=== PATIENT | female | born 1935 | race Two or more races ===

== ENCOUNTER 2018-04-18 12:05 | Inpatient (IN) | payer MEDICARE, MEDICAID ==
[2018-04-18 12:51] LABS: BASOPHILS # (AUTO) 0.1 10^3/uL (0.0-0.1); BASOPHILS % (AUTO) 1.2 %; EOSINOPHILS # (AUTO) 0.2 10^3/uL (0.0-0.7); EOSINOPHILS % (AUTO) 3.2 %; HGB - HEMOGLOBIN 8.2 g/dL (12.0-16.0); LYMPHOCYTES # (AUTO) 0.9 10^3/uL (1.5-3.5); LYMPHOCYTES % (AUTO) 16.1 %; MEAN CORPUSCULAR HGB CONC 32.1 g/dL (32.0-36.0); MEAN CORPUSCULAR VOLUME 81.2 fL (81.0-99.0); MEAN PLATELET VOLUME 9.9 fL (7.9-10.8); MONOCYTES # (AUTO) 0.5 10^3/uL (0.0-1.0); MONOCYTES % (AUTO) 8.5 %; NEUTROPHILS # (AUTO) 4.1 10^3/uL (1.5-6.6); PLT - PLATELET COUNT 76 10^3/uL (130-450); RED BLOOD COUNT 3.14 10^6/uL (4.20-5.40); RED CELL DISTRIBUTION WIDTH 17.9 % (12.0-15.0); WHITE BLOOD COUNT 5.8 x10^3/uL (4.8-10.8)
[2018-04-18 13:02] LABS: ALBUMIN 2.9 g/dL (3.2-5.5); ALBUMIN/GLOBULIN RATIO 0.7 (1.0-2.2); CALCIUM 8.7 mg/dL (8.5-10.3); CREATININE 2.2 mg/dL (0.4-1.0)
--- NOTE | 2018-04-18 13:08 | ED Physician Documentation ---
PD HPI ABD PAIN - Stated complaint Stated Complaint: ABD PX/WEAKNESS - Chief complaint Chief Complaint: Cardiac - History obtained from History obtained from: Patient, Family, Other (using [employer] touring production manager) - History of Present Illness Timing - onset: Other (For the last 3 weeks this 83-year-old woman with history of diabetes and chronic renal insufficiency has had shortness of breath associated with abdominal swelling and upper abdominal pain. She also has dark and tarry stools with some bright red blood per rectum from hemorrhoids. Otherwise her bowel movements have been normal and she has no trouble urinating. She does have pedal edema which is new. Her endocrinology physician trialed a diuretic without relief.) Review of Systems Ten Systems: 10 systems reviewed and negative Constitutional: denies: Fever, Chills Respiratory: reports: Dyspnea. denies: Cough GI: reports: Abdominal Pain, Abdominal Swelling. denies: Nausea, Vomiting, Constipation, Diarrhea PD PAST MEDICAL HISTORY - Past Medical History Past Medical History: No Cardiovascular: Hypertension Respiratory: None Neuro: None Endocrine/Autoimmune: Type 2 diabetes GI: None [employer]: None : None HEENT: None Psych: None Musculoskeletal: None Derm: None - Past Surgical History Past Surgical History: Yes General: Cholecystectomy /[employer]: section HEENT: Cataracts - Allergies Allergies/Adverse Reactions: Allergies Allergy/AdvReac Type Severity Reaction Status Date / Time Penicillins Allergy Unknown Verified 04/18/18 12:23 - Social History Does the pt smoke?: No Smoking Status: Never smoker Does the pt drink ETOH?: No Does the pt have substance abuse?: No - Family History Family history: reports: Non contributory - Immunizations Immunizations are current?: No - POLST Patient has POLST: No PD ED PE NORMAL - Vitals Vital signs reviewed: Yes - General General: Alert and oriented X 3, No acute distress, Other (She is pale and appears anasarca. I am unable to assess JVD due to size of her neck.) - HEENT HEENT: PERRL - Neck Neck: Supple, no meningeal sign, No bony TTP - Cardiac Cardiac: RRR, No murmur - Respiratory Respiratory: No respiratory distress, Clear bilaterally - Abdomen Abdomen: Other (She has a tight distended abdomen with mild upper abdominal tenderness and a positive fluid wave) - Rectal Rectal: Other (She has a small rectal prolapse, there is scant dark stool in the vault that is very guaiac positive) - Back Back: No CVA TTP, No spinal TTP - Derm Derm: Normal color, Warm and dry - Extremities Extremities: Other (Significant bilateral pitting pedal edema with some weeping) - Neuro Neuro: Alert and oriented X 3, Normal speech Results - Vitals Vitals: Vital Signs - 24 hr 04/18/18 04/18/18 04/18/18 12:14 13:21 13:23 Temperature 37.3 C Heart Rate 87 88 Respiratory 28 H 25 H Rate Blood Pressure 131/78 H 149/64 H Blood Pressure 149/64 H [Left] O2 Saturation 100 99 04/18/18 04/18/18 04/18/18 13:34 14:04 14:34 Temperature Heart Rate 87 83 86 Respiratory 26 H 24 24 Rate Blood Pressure 149/59 H 142/68 H 134/49 H Blood Pressure [Left] O2 Saturation 98 100 100 04/18/18 04/18/18 15:00 15:30 Temperature Heart Rate 87 89 Respiratory 28 H 23 Rate Blood Pressure 139/60 H 123/70 Blood Pressure [Left] O2 Saturation 100 97 Oxygen O2 Source Room air - EKG (time done) 1310 Rate: Rate (enter#) (88) Rhythm: NSR [place]: Normal Intervals: Normal AL QRS: LVH Ischemia: Q waves (anterior). No: ST elevation c/w ischemia Compare to prior EKG: Old EKG unavailable Computer interpretation: Agree with computer - Labs Labs: Laboratory Tests 04/18/18 04/18/18 04/18/18 12:40 12:40 12:40 WBC 5.8 RBC 3.14 L Hgb 8.2 L Hct 25.4 L MCV 81.2 MCH 26.0 L MCHC 32.1 RDW 17.9 H Plt Count 76 L MPV 9.9 Neut # (Auto) 4.1 Lymph # (Auto) 0.9 L Starke # (Auto) 0.5 Eos # (Auto) 0.2 Baso # (Auto) 0.1 Absolute Nucleated RBC 0.00 Nucleated RBC % 0.0 PT INR APTT Sodium 138 Potassium 3.7 Chloride 107 Carbon Dioxide 23 Anion Gap 8.0 BUN 62 H Creatinine 2.2 H Estimated GFR (MDRD) 21 L Glucose 146 H Calcium 8.7 Total Bilirubin 1.0 AST 34 ALT 22 Alkaline Phosphatase 52 Troponin I < 0.04 Total Protein 7.0 Albumin 2.9 L Globulin 4.1 Albumin/Globulin Ratio 0.7 L Lipase 38 Blood Type Blood Type Recheck Antibody Screen Crossmatch IS Only 04/18/18 04/18/18 04/18/18 12:40 12:40 13:45 WBC RBC Hgb Hct MCV MCH MCHC RDW Plt Count MPV Neut # (Auto) Lymph # (Auto) Starke # (Auto) Eos # (Auto) Baso # (Auto) Absolute Nucleated RBC Nucleated RBC % PT 14.7 H INR 1.3 H APTT 32.4 Sodium Potassium Chloride Carbon Dioxide Anion Gap BUN Creatinine Estimated GFR (MDRD) Glucose Calcium Total Bilirubin AST ALT Alkaline Phosphatase Troponin I Total Protein Albumin Globulin Albumin/Globulin Ratio Lipase Blood Type A POSITIVE Blood Type Recheck A POSITIVE Antibody Screen NEGATIVE Crossmatch IS Only See Detail - Rads (name of study) CT KUB Radiology: EMP read contemporaneously (Cirrhotic liver and peritoneal free fluid. Renal lesion.) PD MEDICAL DECISION MAKING - ED course ED course: This is an 83-year-old woman who presents with predominant complaint of respiratory compromise which is likely due to tense ascites. Because of the ascites is unknown, but diuretics have been ineffective as prescribed by her endocrinology physician. CT is consistent with cirrhosis but she denies ever being a drinker. Given the ongoing GI bleeding she needs to stay in the hospital. Blood is ready but not transfused yet. She was given IV Protonix. Spoke with 's office who will consult if necessary for scopes and Dr. Herrera for admission at 3:43 PM. We discussed CODE STATUS using the touring production manager and she would like to be full code. Departure - Departure Disposition: [facility] DC/Xfer Clinical Impression: Ascites Qualifiers: Ascites type: other type Qualified Code(s): R18.8 - Other ascites GI bleed Qualifiers: GI bleed type/associated pathology: unspecified gastrointestinal hemorrhage type Qualified Code(s): K92.2 - Gastrointestinal hemorrhage, unspecified Condition: Serious
[2018-04-18] MEDS ORDERED: PANTOPRAZOLE 40 MG VIAL IVP STA (13:32)
--- NOTE | 2018-04-18 13:56 | XRAY Report ---
Reason: SOA, confusion Procedure Date: 04/18/2018 Accession Number: [id number] / [id number] Procedure: XR - Chest 1 View X-Ray CPT Code: 80037 FULL RESULT: EXAM: CHEST RADIOGRAPHY EXAM DATE: 04/18/2018 01:11 PM. CLINICAL HISTORY: SOA, confusion. COMPARISON: None. TECHNIQUE: 1 view. FINDINGS: Lungs/Pleura: Low lung volumes. No focal consolidation. Possible mild pulmonary vascular congestion. No pneumothorax or large pleural effusion. Mediastinum: Mild to moderate enlargement of the cardiac silhouette. Other: None. IMPRESSION: Possible mild pulmonary vascular congestion. Otherwise no evidence of acute abnormality. RADIA
[2018-04-18 15:16] LABS: INR 1.3 (0.8-1.2); PT - PROTHROMBIN TIME 14.7 secs (9.9-12.6)
--- NOTE | 2018-04-18 15:21 | CT Report ---
Reason: abd swelling, concern for ca, renal failure Procedure Date: 04/18/2018 Accession Number: [id number] / [id number] Procedure: CT - Abdomen/Pelvis W/O CPT Code: FULL RESULT: EXAM: CT ABDOMEN AND PELVIS (CT KUB) EXAM DATE: 04/18/2018 02:25 PM. CLINICAL HISTORY: Abdominal swelling, concern for cancer. Renal failure. COMPARISONS: None. TECHNIQUE: Routine axial helical CT imaging was performed through the abdomen and pelvis without IV contrast. Reconstructions: Coronal and sagittal. In accordance with CT protocol optimization, one or more of the following dose reduction techniques were utilized for this exam: automated exposure control, adjustment of mA and/or KV based on patient size, or use of iterative reconstructive technique. FINDINGS: Lung Bases: Respiratory motion limits evaluation of the parenchyma. There are linear opacities in the lung bases, suggestive of atelectasis. Heart is moderately enlarged. A small hiatal hernia is present. Liver: Nodular contour, suggestive of cirrhosis. Gallbladder/bile ducts: Gallbladder is not visualized and may be surgically absent. Common bile duct measures approximately 9 mm (series 5, image 34). This is within normal limits for the patient's age. Spleen: Mildly enlarged, measuring 14 cm in craniocaudal dimension (series 5, image 48). Pancreas: Atrophic. No ductal dilation. Adrenal glands: No nodules. Kidneys: A 1.9 cm lesion in the lower pole of the right kidney (series 3, image 56) has intermediate attenuation. This is indeterminate. Bilateral upper pole renal cyst present. No hydronephrosis. Peritoneal Cavity: There is a moderate-large volume of peritoneal free fluid. Areas of irregular stranding are demonstrated in the anterior abdomen (series 3, images 64 and 66). There are areas of stranding in the anterior abdomen (series 3, images 64 and 66), which are favored to represent areas of fluid; however, carcinomatosis could have similar appearance. No evidence of bowel obstruction. Evaluation for focal bowel inflammation is difficult in the setting of peritoneal fluid. There are scattered colonic diverticulosis without evidence of diverticulitis. Pelvic Organs: Urinary bladder is unremarkable. The uterus and adnexal structures are unremarkable. No pelvic adenopathy. Vasculature: Atherosclerotic calcification demonstrated in the abdominal aorta. No abdominal aortic aneurysm. Other: There is stranding diffusely in the subcutaneous tissues. No retroperitoneal adenopathy. IMPRESSION: 1. Cirrhosis configuration of the liver with splenomegaly, suggestive of portal hypertension. 2. Moderate-large volume peroneal free fluid is favored to represent ascites from portal hypertension. Areas of mild stranding in the anterior abdomen are felt to represent wispy areas of fluid. However, carcinomatosis is not entirely excluded. Diagnostic/therapeutic paracentesis could be considered for further evaluation. 3. Indeterminate lesion in the lower pole of the right kidney. Recommend renal ultrasound for further evaluation. 4. Small hiatal hernia. RADIA
[2018-04-18] MEDS ORDERED: ONDANSETRON ODT 4 MG TABLET TL PRN (15:42)
[2018-04-18] MEDS ORDERED: ACETAMINOPHEN 325 MG TABLET PO PRN (15:42)
[2018-04-18] MEDS ORDERED: SODIUM CHLORIDE FLUSH 0.9% 10 ML SYRINGE IVP PRN (15:42)
[2018-04-18] MEDS ORDERED: ONDANSETRON 4 MG/2 ML VIAL IVP PRN (15:42)
--- NOTE | 2018-04-18 16:28 | HISTORY & PHYSICAL EXAMINATION ---
Chief Complaint - Chief Complaint Chief Complaint: abd distension, pain, christianson History of Present Illness - Admitted From Admitted From:: Home/ER - History Obtained From Records Reviewed: Segundo/LANCE-NS History obtained from: Patient and daughter and Dr. Diggs Exam Limitations: None - History of Present Illness HPI Comment/Other: 83-year-old Polish female who has a past medical history significant for type 2 diabetes mellitus, hypertension, osteoarthritis, and morbid obesity. She moved to [facility] approximately in February. In [place] she was seen by her faculty dean approximately January. She was told that she has kidney disease and protein in the urine. Started on an ARB. Since moving here she establish herself at [facility]. [facility] stopped the ARB drug that her faculty dean prescribed. Amlodipine was started. Ever since she started the amlodipine she has had lower extremity edema. When she saw her faculty dean April 06, she was already having pedal edema and shortness of breath with exertion. She was denying chest pain or pressure. She was losing her balance and falling 4-5 times a week. Her falls are gotten so bad that she had bilateral black eyes. She had an echocardiogram performed this last year while living in [place] and she had normal cardiac function according to the patient. When she saw her faculty dean he diagnosed her as chronic kidney disease stage III with a BUN of 19 and a creatinine of 1.34. He wanted her to be on a low-salt diet, avoid nonsteroidals and proton pump inhibitors. He resumed her irbasartan and added chlorthalidone 25 mg a day. He wanted her to get physical therapy, encouraged her to have a target goal of A1c of <7% for her diabetes, a target goal blood pressure less than 130/80, and he ordered a large panel of labs as well as abdominal ultrasound. An abdominal ultrasound done April 06 showed increased hepatic echogenicity and scalloping of the hepatic capsule suggesting cirrhosis. Moderate ascites. Bilateral renal cysts. She does not know any of her ultrasound or lab results yet. She was supposed to see him May 11. But she has subsequent visits with Dr. Antonio Birmingham MD (Oncology) on 04/21/18 and BARRON Pino (GI) on 04/30/18, and a repeat Nephrology visit 05/11/[address] Tapia. The oncology visit is because she has a submandibular lymphadenopathy that is worrying her daughter. So her PCP sent her to the oncologist. And she was to see the drawing press operator because of A bleeding hemorrhoid. She was having painless bright red blood per rectum. From her lab visits on April 06, her PTH was 44 and normal. Random urine had 254 mg/dL of protein. Hemoglobin was 8.1. Hematocrit 27.5. MCV 87. Platelets 128. BUN was 63 and creatinine was 1.73. Liver enzymes were normal. What is pending is a vitamin D, serum protein electrophoresis, urine electrophoresis, hepatitis B surface antigen, FABRICIO with reflex, RPR, hepatitis C virus antibody, HIV. When she saw the faculty dean, she did have the dyspnea on exertion, and pedal edema. What she did not have was the fluid in her abdomen. Between then and now her belly has gotten more and more distended. More painful. She cannot breathe because of the pressure pushing up underneath her diaphragm. She denies weight loss. Appetite has gone down because she feels like she cannot eat. There is not enough room in her belly to do so. She denies night sweats. Her stool has turned black. She was started on a iron tablet. Pretty much the next day her stool turned black. With the abdominal distention got so uncomfortable that it made her baseline shortness of breath worse, she decided to come to the emergency room. In the emergency room she looks completely measurable. She is normotensive afebrile and a little bit tachypneic. O2 sats are normal on room air. But her belly distention is quite uncomfortable. Diffusely distended. BUN is stable at 62 but creatinine is higher at 2.2. Her GFR has dropped down to 21. Troponins are negative. DAVID globin is stable at 8.2. But platelets are dropping to 76. INR is 1.3. She is now admitted to make sure she is not having a GI bleed, to do a diagnostic and therapeutic paracentesis, and to overall provide symptom management. She is very anxious to make sure she leaves here by April 20. The oncology visit on April 21 was very hard to come by and she and her daughter are anxious at this that she keep it. 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 She had severe Alzheimer's at her . Dad in his mid 80s of "old age". She is 1 of 8 siblings. 4 siblings are . They are of complications of diabetes, dialysis, bone cancer. 3 children. 2 sons and a daughter. Morbid obesity, diabetes but otherwise healthy Living arrangement: At home Living Situation: With family Social History Notes: She is from [place]. Moved to [facility] in February 2018. She moved here because she could not live alone by herself anymore in [place]. She been falling too much. Memory loss was getting severe. Daughter was getting more a more alarmed. She did spend some time with her son in [place] but it did not work out and she was moved to [place] after that. She has been 2 times. Currently from her second . 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 She did that for about 10 or 15 years. She does not think that she was exposed to any risky chemicals. But the family is not sure. She stopped work with the of her first child. That was about 42 years ago. Never had a history of alcohol abuse.She never smoked. She never did recreational substance. - Substance History Use: Uses substance without health or social issues: NONE Abuse: Recurrent use of substance despite neg consequences: NONE Dependence: Experiences withdrawal or developed tolerances: NONE - POLST Patient has POLST: No POLST Status: Full Code Meds/Allgy - Home Medications Home Medications: Ambulatory Orders Medication Instructions Recorded Confirmed Amlodipine Besylate 5 mg PO DAILY 04/18/18 04/18/18 Atorvastatin Calcium 20 mg PO QPM 04/18/18 04/18/18 Bumetanide 1 mg PO BID 04/18/18 04/18/18 Cholecalciferol (Vitamin D3) 400 unit PO DAILY 04/18/18 04/18/18 [Vitamin D3] Ferrous Sulfate 325 mg PO BID 04/18/18 04/18/18 Insulin Glargine [Lantus Solostar] 50 unit SQ DAILY 04/18/18 04/18/18 Insulin Lispro [Humalog] 25 unit SQ TIDWM 04/18/18 04/18/18 Sertraline [Zoloft] 25 mg PO DAILY 04/18/18 04/18/18 raNITIdine [Zantac] 150 mg PO DAILY 04/18/18 04/18/18 - Allergies Allergies/Adverse Reactions: Allergies Allergy/AdvReac Type Severity Reaction Status Date / Time Penicillins Allergy Unknown Verified 04/18/18 12:23 Review of Systems - Constitutional Constitutional: reports: Fatigue, Malaise, Weakness (In her legs. They just give out on her.), Poor appetite (In the last few weeks because her belly is so distended she feels like she does not have room to eat food to put in there), Weight gain. denies: Fever, Chills, Diaphoresis, Night sweats, Weight loss - Eyes Eyes: denies: Pain, Irritation, Amaurosis, Blurred vision, Vision loss - Ears, Nose & Throat Ears, Nose & Throat: reports: Hearing loss, Vertigo (Causing falls.). denies: Ear pain, Hearing aids, Tinnitus, Nasal pain, Nasal congestion, Postnasal drainage, Dentures, Sore throat - Cardiovascular Cariovascular: reports: Edema (All the way from feet up her legs and into her buttocks and her lower back), Lightheadedness, Exertional dyspnea, Decr. exercise tolerance. denies: Irregular heart rate, Palpitations, Chest pain - Respiratory Respiratory: reports: Orthopnea, SOB at rest (From her abdominal distention pressing upwards so she can sleep comfortably or talk very much), SOB with exertion (Getting worse and worse over the last month). denies: Cough, Sputum production, Wheezing, Snoring, Hemoptysis, Apnea, Stridor, Pleuritic pain - Gastrointestinal Gastrointestinal: reports: Abdominal pain (Diffuse from the distention of the fluid in her belly. Present only the last 2 weeks), Abdominal distention, Rectal bleeding (From a ball of hemorrhoid that is not painful), Black stools (When she started the iron tablets), Bloating, Poor appetite. denies: Change in bowel habits, Bile emesis, [place] blood emesis, Coffee grounds emesis, Reflux/heartburn - Musculoskeletal Musculoskeletal: reports: Back pain, Muscle aches, Stiffness, Gout, Joint pain. denies: Muscle pain - Integumentary Integumentary: reports: Lumps (Left submandibular area). denies: Rash, Pruritis, Lesions, Dryness - Neurological Neurological: reports: General weakness, Dizziness, Memory problems (Starting about a year ago. For instance she will take her insulin, and 10 minutes later forgets she took it, and asked her daughter if she should take it again), Incoor dination (Gets waves of dizziness, then her legs go out from underneath her, and she falls a lot. This is been ongoing for 3 years.She denies syncope. She denies seizure disorder.). denies: Focal weakness, Headache - Psychiatric Psychiatric: reports: Depression, Anxiety. denies: Suicidal, Delusions, Hallucinations - Endocrine Endocrine: denies: Polyuria, Polydypsia, Polyphagia - Hematologic/Lymphatic Hematologic/Lymphatic: reports: Bruising, Petechiae, Blood clots (DVT in the past). denies: Anemia Prior Level of Functionality: She was living alone in [place] in her own home. But for the last 3 years she has been falling too much, needing more more help with regards to walkers and finances and medication. Memory loss was really starting to affect her ability keep things straight. Daughter finally got alarmed enough that she brought her to the [facility] in the summer 2018. Since then she has noticed that her mom is very forgetful, does not remember what she is done in the last 10 minutes, needs to be prompted to eat. Still is very impulsive, gets up suddenly and then will fall because of dizziness. Sometimes she uses a walker sometimes she does not. She does not drive. She is currently not taking care of any of her finances. Exam - Vital Signs Reviewed Vital Signs: Yes Vital Signs: Vital Signs x48h Temp Pulse Resp BP BP Pulse Ox 04/18/18 15:30 89 23 123/70 97 04/18/18 15:00 87 28 H 139/60 H 100 04/18/18 14:34 86 24 134/49 H 100 04/18/18 14:04 83 24 142/68 H 100 04/18/18 13:34 87 26 H 149/59 H 98 04/18/18 13:23 149/64 H 04/18/18 13:21 88 25 H 149/64 H 99 04/18/18 12:14 37.3 C 87 28 H 131/78 H 100 - Physical Exam General Appearance: positive: No acute distress, Alert, Other (Short morbidly obese female who is very uncomfortable laying almost flat on her back, with a huge amount of the belly above her, restricting her ability to at least release her diaphragm to breathe. Very uncomfortable from the distention.) Eyes Bilateral: positive: PERRL, EOMI, Other ([place] sclera) ENT: positive: Other (A lot of teeth gone, thick gingival hyperplasia, very dry tongue, pale tongue and oral mucosa) Neck: positive: Other (JVD is present). negative: Stiff neck, Carotid bruit Respiratory: positive: Chest non-tender, Rales, Other (Painting almost tachypneic respiration that she tries to catch her breath). negative: Wheezes, Rhonchi Cardiovascular: positive: Regular rate & rhythm, JVD present, Systolic murmur. negative: Gallop/S4, Friction rub Peripheral Pulses: positive: 1+ Abdomen: positive: Other (Diffusely tender obese pannus, tympanitic and its pressure. Hypoactive bowel sounds. Generalized tenderness without rebound or guarding. Liver edge is palpable. Spleen is not palpable. There is no spider angioma on her abdominal wall) Skin: positive: Warm, Dry, Pallor Extremities: positive: Full ROM, Pedal edema (And anasarca. She has 2-3+ edema from the feet all the way up. She has 2+ edema at the thighs and 1+ edema in the sacrum and buttock). negative: Joint swelling, Isabella's sign/cords Neurologic/Psychiatric: positive: CN's nml (2-12), Motor nml, Disoriented to time (She relies on her daughter to provide the history and give her a backup. For instance she cannot remember when her mother . She cannot remember when her dad . She is a hard time remembering how many siblings she had.), Weakness Conclusion/Plan - Problem List (1) Cirrhosis of liver with ascites Conclusion/Plan: She denies alcohol abuse. she has no history of drug abuse. 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 Differential diagnosis in this woman would include hepatitis, ovarian cancer, colon cancer, etc. There is no definitive liver lesion seen on CT. We are focusing on the hematochezia but she is more concerned about the fact she cannot breathe from her abdominal distention. Plan: Call [facility] to get those results Check alpha-fetoprotein Probable outpatient EGD to check for esophageal varices but we will get Gen Surg consult Radiology will be contacted to schedule a paracentesis tomorrow morning. Fluid will be sent for cell count, Gram stain, culture and sensitivity, LDH, glucose, protein. I will also have fluid spun down for cytology and analysis. Hepatitis B and C serology is pending from April 06 at [facility]. I do not want to repeat the studies. Qualifiers: Hepatic cirrhosis type: unspecified hepatic cirrhosis Qualified Code(s): K74.60 - Unspecified cirrhosis of liver; R18.8 - Other ascites (2) Hematochezia Conclusion/Plan: This is a lady who has bright red blood per rectum from a presumed hemorrhoid. Hematochezia started after she was started on iron tablets. Hemoglobin from April 06 and today is stable. The patient's black stools may be strictly from iron tablets. As for the small "little ball" that she feels in her rectum, she may be feeling her rectal prolapse. It is painless. And Dr. Cook does not feel hemorrhoids. Or see hemorrhoids. Stool is FOB (+) Plan: Check every 6 hours hemograms. She may be a candidate for an EGD and colonoscopy. However, if she has esophageal varices, general surgery is not gone want to scope her here. If she is hemodynamically stable and not having evidence of a GI bleed, she may need to do this in the outpatient setting when she sees the physician retail sales assistant April 30. (3) Acute renal failure superimposed on stage 3 chronic kidney disease Conclusion/Plan: She may have prerenal azotemia from the lack of p.o. intake. But she already has chronic kidney disease and liver failure. Monitor for hepatorenal failure. Plan: Check daily CBC. Make sure she does not get hypotensive She will need diuresis. However, I plan on doing a paracentesis tomorrow and she may get up to 6 L taken out. We will make sure she gets albumin after the procedure. I will not give her Lasix on top of that until she is redistributed some of her body fluids. I also warned her that sometimes she gets severe leg cramps and body cramps as the fluid comes out of your soft tissues. We will make sure she gets magnesium oxide. Qualifiers: Acute renal failure type: unspecified Qualified Code(s): N17.9 - Acute kidney failure, unspecified; N18.3 - Chronic kidney disease, stage 3 (moderate) (4) Controlled type 2 diabetes mellitus, with long-term current use of insulin Conclusion/Plan: Lantus is 50 units at night. She also takes 25 units of lispro 25 subcu 3 times daily. She will be allowed dinner. But then she will be n.p.o. after midnight. Her random glucose is 146. We will try not to make her hypoglycemic. Qualifiers: Diabetes mellitus complication status: with kidney complications Diabetes mellitus complication detail: with chronic kidney disease Chronic kidney disease stage: stage 3 (moderate) Qualified Code(s): E11.22 - Type 2 diabetes mellitus with diabetic chronic kidney disease; N18.3 - Chronic kidney disease, stage 3 (moderate); Z79.4 - half-way (current) use of insulin (5) HTN (hypertension) Conclusion/Plan: In for systolic of less than 130 and a diastolic of less than 70. We will also monitor carefully because she is going to get a paracentesis and will be int ravascularly depleted and possibly drop her blood pressure. Again, we will avoid diuretics for now. She will get albumin after the procedure. Qualifiers: Hypertension type: essential hypertension Qualified Code(s): I10 - Essential (primary) hypertension (6) Renal mass, right Conclusion/Plan: renal US. (7) CHRISTIANSON (dyspnea on exertion) Conclusion/Plan: This woman describes classic presentation of someone who may have congestive heart failure. But she is adamant that an echocardiogram done in [place] the month before she left [place] was completely normal. I do not know if I want to trust that history or do a repeat our own echo here? She does not have COPD or asthma as was listed in her medical record and [facility]. She is adamant that she was a non-smoker, never had problems with asthma or coughing or wheezing. Her dyspnea on exertion may be strictly from this gradually increasing ascites. After her paracentesis, will reevaluate her mobility and endurance. If it is still limited, will check echo then. - Lab Results Fish Bones: 04/18/18 17:05 04/18/18 12:40 - Diagnostic Imaging Results Diagnostic Imaging Results: positive: Final report reviewed Diagnostic Imaging Results Comments: CT OF ABDOMEN EXAM DATE: 04/18/2018 02:25 PM. CLINICAL HISTORY: Abdominal swelling, concern for cancer. Renal failure. COMPARISONS: None. TECHNIQUE: Routine axial helical CT imaging was performed through the abdomen and pelvis without IV contrast. Reconstructions: Coronal and sagittal. In accordance with CT protocol optimization, one or more of the following dose reduction techniques were utilized for this exam: automated exposure control, adjustment of mA and/or KV based on patient size, or use of iterative reconstructive technique. FINDINGS: Lung Bases: Respiratory motion limits evaluation of the parenchyma. There are linear opacities in the lung bases, suggestive of atelectasis. Heart is moderately enlarged. A small hiatal hernia is present. Liver: Nodular contour, suggestive of cirrhosis. Gallbladder/bile ducts: Gallbladder is not visualized and may be surgically absent. Common bile duct measures approximately 9 mm (series 5, image 34). This is within normal limits for the patient's age. Spleen: Mildly enlarged, measuring 14 cm in craniocaudal dimension (series 5, image 48). Pancreas: Atrophic. No ductal dilation. Adrenal glands: No nodules. Kidneys: A 1.9 cm lesion in the lower pole of the right kidney (series 3, image 56) has intermediate attenuation. This is indeterminate. Bilateral upper pole renal cyst present. No hydronephrosis. Peritoneal Cavity: There is a moderate-large volume of peritoneal free fluid. Areas of irregular stranding are demonstrated in the anterior abdomen (series 3, images 64 and 66). There are areas of stranding in the anterior abdomen (series 3, images 64 and 66), which are favored to represent areas of fluid; however, carcinomatosis could have similar appearance. No evidence of bowel obstruction. Evaluation for focal bowel inflammation is difficult in the setting of peritoneal fluid. There are scattered colonic diverticulosis without evidence of diverticulitis. Pelvic Organs: Urinary bladder is unremarkable. The uterus and adnexal structures are unremarkable. No pelvic adenopathy. Vasculature: Atherosclerotic calcification demonstrated in the abdominal aorta. No abdominal aortic aneurysm. Other: There is stranding diffusely in the subcutaneous tissues. No retroperitoneal adenopathy. IMPRESSION: 1. Cirrhosis configuration of the liver with splenomegaly, suggestive of portal hypertension. 2. Moderate-large volume peroneal free fluid is favored to represent ascites from portal hypertension. Areas of mild stranding in the anterior abdomen are felt to represent wispy areas of fluid. However, carcinomatosis is not entirely excluded. Diagnostic/therapeutic paracentesis could be considered for further evaluation. 3. Indeterminate lesion in the lower pole of the right kidney. Recommend renal ultrasound for further evaluation. 4. Small hiatal hernia. CHEST RADIOGRAPHY EXAM DATE: 04/18/2018 01:11 PM. CLINICAL HISTORY: SOA, confusion. COMPARISON: None. TECHNIQUE: 1 view. FINDINGS: Lungs/Pleura: Low lung volumes. No focal consolidation. Possible mild pulmonary vascular congestion. No pneumothorax or large pleural effusion. Mediastinum: Mild to moderate enlargement of the cardiac silhouette. Other: None. IMPRESSION: Possible mild pulmonary vascular congestion. Otherwise no evidence of acute abnormality. Core Measures - Anticipated LOS I expect patient to be DC'd or transferred within 96 hours.: Yes - DVT/VTE - Prophylaxis VTE/DVT Device ordered at admit?: Yes
[2018-04-18 17:18] LABS: HGB - HEMOGLOBIN 8.1 g/dL (12.0-16.0); MEAN CORPUSCULAR HEMOGLOBIN 25.9 pg (27.0-31.0); MEAN CORPUSCULAR HGB CONC 29.2 g/dL (32.0-36.0); MEAN CORPUSCULAR VOLUME 88.8 fL (81.0-99.0); MEAN PLATELET VOLUME 10.5 fL (7.9-10.8); RED BLOOD COUNT 3.11 10^6/uL (4.20-5.40); RED CELL DISTRIBUTION WIDTH 18.6 % (12.0-15.0); WHITE BLOOD COUNT 6.4 x10^3/uL (4.8-10.8)
[2018-04-18] MEDS: INSULIN REGULAR HUMAN 100 UNIT/1 ML 10 ML MDV SUBQ SCH (18:54)
[2018-04-18] MEDS: oxyCODONE 5 MG TABLET PO PRN (18:56)
[2018-04-18] MEDS: SODIUM CHLORIDE FLUSH 0.9% 10 ML SYRINGE IVP SCH (18:57)
[2018-04-18] MEDS: INSULIN GLARGINE 300 UNIT/3 ML PEN SUBQ SCH (20:51)
[2018-04-18] MEDS: FERROUS SULFATE 325 MG TABLET PO SCH (20:51)
[2018-04-18] MEDS ORDERED: BACITRACIN OINT TOP PRN (21:07)
[2018-04-19] MEDS: INSULIN REGULAR HUMAN 100 UNIT/1 ML 10 ML MDV SUBQ SCH ×3 (00:01→12:47)
[2018-04-19] MEDS: SODIUM CHLORIDE FLUSH 0.9% 10 ML SYRINGE IVP SCH ×3 (00:03→16:28)
[2018-04-19 00:41] LABS: HGB - HEMOGLOBIN 7.1 g/dL (12.0-16.0); MEAN CORPUSCULAR HEMOGLOBIN 25.9 pg (27.0-31.0); MEAN CORPUSCULAR HGB CONC 31.1 g/dL (32.0-36.0); MEAN CORPUSCULAR VOLUME 83.1 fL (81.0-99.0); MEAN PLATELET VOLUME 10.8 fL (7.9-10.8); RED BLOOD COUNT 2.75 10^6/uL (4.20-5.40); RED CELL DISTRIBUTION WIDTH 17.5 % (12.0-15.0); WHITE BLOOD COUNT 4.7 x10^3/uL (4.8-10.8)
[2018-04-19 05:14] LABS: EOSINOPHILS # (AUTO) 0.2 10^3/uL (0.0-0.7); EOSINOPHILS % (AUTO) 4.2 %; HGB - HEMOGLOBIN 7.1 g/dL (12.0-16.0); LYMPHOCYTES % (AUTO) 22.7 %; MEAN CORPUSCULAR HEMOGLOBIN 25.9 pg (27.0-31.0); MEAN CORPUSCULAR HGB CONC 31.1 g/dL (32.0-36.0); MEAN CORPUSCULAR VOLUME 83.2 fL (81.0-99.0); MEAN PLATELET VOLUME 9.9 fL (7.9-10.8); MONOCYTES # (AUTO) 0.5 10^3/uL (0.0-1.0); MONOCYTES % (AUTO) 10.4 %; NEUTROPHILS # (AUTO) 2.7 10^3/uL (1.5-6.6); NEUTROPHILS % (AUTO) 61.7 %; PLT - PLATELET COUNT 70 10^3/uL (130-450); RED BLOOD COUNT 2.75 10^6/uL (4.20-5.40); RED CELL DISTRIBUTION WIDTH 17.7 % (12.0-15.0); WHITE BLOOD COUNT 4.5 x10^3/uL (4.8-10.8)
[2018-04-19 05:20] LABS: CALCIUM 8.3 mg/dL (8.5-10.3); CREATININE 2.1 mg/dL (0.4-1.0)
[2018-04-19 05:25] LABS: HEMOGLOBIN A1C 0.25 g/dL; HEMOGLOBIN A1C % 5.4 % (4.6-6.2)
--- NOTE | 2018-04-19 07:59 | PROVIDER PROGRESS NOTE ---
Subjective - Prog Note Date Prog Note Date: 04/19/18 Prog Note Time: 08:30 - Subjective Pt reports feeling: No change Subjective: She is asleep but awakens easily. She says she was able to get some rest last night. But she still very tired. The abdominal pressure does not hurt as much but it still there. She did not get any diuresis last night is I am hoping to avoid worsening her kidneys in the face of her about to get a paracentesis today that will be large volume. There is no new chest pain, palpitations. Current Medications - Current Medications Current Medications: Active Medications Acetaminophen (Tylenol) 650 mg PO Q4HR PRN PRN Reason: Pain 1 to 4 Amlodipine Besylate (Norvasc) 5 mg PO DAILY [facility] Bacitracin (Bacitracin) 1 packet TOP PRN PRN PRN Reason: Skin Care Ferrous Sulfate (Feosol) 325 mg PO BID [facility] Last Admin: 04/18/18 20:51 Dose: 325 mg Albumin Human (Albuminar-25) 12.5 gm in 50 mls @ 50 mls/hr IV ONCE [facility] Stop: 04/22/18 09:59 Dextrose/Sodium Chloride (D5ns) 1,000 mls @ 83.333 mls/hr IV .Q12H [facility] Insulin Glargine (Lantus Solostar) 40 unit SUBQ QPM [facility] Last Admin: 04/18/18 20:51 Dose: 20 unit Insulin Human Regular (Novolin R) 3 - 11 unit SUBQ Q6HR [facility]; Protocol Last Admin: 04/19/18 05:52 Dose: Not Given Ondansetron HCl (Zofran Inj) 4 mg IVP Q6HR PRN PRN Reason: Nausea / Vomiting Ondansetron HCl (Zofran Odt) 4 mg TL Q6HR PRN PRN Reason: Nausea / Vomiting Oxycodone HCl (Roxicodone) 5 mg PO Q4HR PRN PRN Reason: Pain 5 to 7 Last Admin: 04/18/18 18:56 Dose: 5 mg Polyethylene Glycol (Miralax) 17 gm PO DAILY [facility] Sertraline HCl (Zoloft) 25 mg PO DAILY [facility] Sodium Chloride (Normal Saline Flush 0.9%) 10 ml IVP PRN PRN PRN Reason: NEEDED PER PROVIDER ORDERS Sodium Chloride (Normal Saline Flush 0.9%) 10 ml IVP 0100,0900,1700 [facility] Last Admin: 04/19/18 00:03 Dose: 10 ml Amlodipine Besylate 5 mg PO DAILY 04/18/18 Atorvastatin Calcium 20 mg PO QPM 04/18/18 Bumetanide 1 mg PO BID 04/18/18 Cholecalciferol (Vitamin D3) [Vitamin D3] 400 unit PO DAILY 04/18/18 Ferrous Sulfate 325 mg PO BID 04/18/18 Insulin Glargine [Lantus Solostar] 50 unit SQ DAILY 04/18/18 Insulin Lispro [Humalog] 25 unit SQ TIDWM 04/18/18 Sertraline [Zoloft] 25 mg PO DAILY 04/18/18 raNITIdine [Zantac] 150 mg PO DAILY 04/18/18 Objective - Vital Signs/Intake & Output Reviewed Vital Signs: Yes Vital Signs: Vital Signs x48h Temp Pulse Pulse Resp BP Pulse Ox 04/19/18 03:38 37.1 C 98 20 100 04/19/18 00:00 36.7 C 87 20 133/51 H 92 Intake & Output: Intake & Output 04/16/18 04/17/18 04/18/18 04/19/18 23:59 23:59 23:59 23:59 Intake Total 250 Output Total 200 Balance 250 -200 - Objective General Appearance: positive: No acute distress, Alert, Other (Short statured moderately overweight female. Her large distended abdomen may be deceiving in that it gives her a larger body habitus than she may have.) Eyes Bilateral: positive: PERRL ENT: positive: Other (Gingival hyperplasia, some of her teeth are gone, pale dry tongue) Neck: negative: Stiff neck, Carotid bruit Respiratory: positive: Chest non-tender, No respiratory distress, Rales. negative: Wheezes, Rhonchi Cardiovascular: positive: Regular rate & rhythm, Systolic murmur. negative: Gallop/S4, Friction rub Abdomen: positive: Other (Diffusely distended, tympanitic, diffusely tender. Hypoactive bowel sounds. Liver edge palpable in the right upper quadrant. No splenomegaly. No capus medusa.) Skin: positive: Warm, Dry, Other (she does have the overall duarte of a hemochromatosis patient) Extremities: positive: Full ROM, Pedal edema (and anasarca to buttocks) Neurologic/Psychiatric: positive: CN's nml (2-12), Motor nml, Disoriented to time, Weakness, Other (very forgetful) - Lab Results Fish Bones: 04/19/18 04:50 04/19/18 04:50 Other Labs: Lab Results x24hrs 04/19/18 04/19/18 04/19/18 Range/Units 05:51 04:50 04:50 WBC (4.8-10.8) x10^3/uL RBC (4.20-5.40) 10^6/uL Hgb (12.0-16.0) g/dL Hct (37.0-47.0) % MCV (81.0-99.0) fL MCH (27.0-31.0) pg MCHC (32.0-36.0) g/dL RDW (12.0-15.0) % Plt Count (130-450) 10^3/uL MPV (7.9-10.8) fL Neut # (Auto) (1.5-6.6) 10^3/uL Lymph # (Auto) (1.5-3.5) 10^3/uL Bond # (Auto) (0.0-1.0) 10^3/uL Eos # (Auto) (0.0-0.7) 10^3/uL Baso # (Auto) (0.0-0.1) 10^3/uL Absolute Nucleated RBC x10^3/uL Nucleated RBC % /100WBC PT (9.9-12.6) secs INR (0.8-1.2) APTT (24.9-33.3) secs Sodium (135-145) mmol/L Potassium (3.5-5.0) mmol/L Chloride (101-111) mmol/L Carbon Dioxide (21-32) mmol/L Anion Gap (6-13) BUN (6-20) mg/dL Creatinine (0.4-1.0) mg/dL Estimated GFR (MDRD) (>89) Glucose (70-100) mg/dL POC Whole Bld Glucose 103 H (70 - 100) mg/dL Glycated Hemoglobin 5.4 (4.6-6.2) % Estim Average Glucose 108 H (70-100) Calcium (8.5-10.3) mg/dL Total Bilirubin (0.2-1.0) mg/dL AST (10-42) IU/L ALT (10-60) IU/L Alkaline Phosphatase (42-121) IU/L Troponin I (<0.49) ng/mL Total Protein (6.7-8.2) g/dL Albumin (3.2-5.5) g/dL Globulin (2.1-4.2) g/dL Albumin/Globulin Ratio (1.0-2.2) Lipase (22-51) U/L Carcinoembryonic Ag 3.3 ng/mL Blood Type Blood Type Recheck Antibody Screen Crossmatch IS Only 04/19/18 04/19/18 04/19/18 Range/Units 04:50 04:50 00:30 WBC 4.5 L 4.7 L (4.8-10.8) x10^3/uL RBC 2.75 L 2.75 L (4.20-5.40) 10^6/uL Hgb 7.1 L 7.1 L (12.0-16.0) g/dL Hct 22.9 L 22.9 L (37.0-47.0) % MCV 83.2 83.1 (81.0-99.0) fL MCH 25.9 L 25.9 L (27.0-31.0) pg MCHC 31.1 L 31.1 L (32.0-36.0) g/dL RDW 17.7 H 17.5 H (12.0-15.0) % Plt Count 70 L 74 L (130-450) 10^3/uL MPV 9.9 10.8 (7.9-10.8) fL Neut # (Auto) 2.7 (1.5-6.6) 10^3/uL Lymph # (Auto) 1.0 L (1.5-3.5) 10^3/uL Bond # (Auto) 0.5 (0.0-1.0) 10^3/uL Eos # (Auto) 0.2 (0.0-0.7) 10^3/uL Baso # (Auto) 0.0 (0.0-0.1) 10^3/uL Absolute Nucleated RBC 0.00 x10^3/uL Nucleated RBC % 0.1 /100WBC PT (9.9-12.6) secs INR (0.8-1.2) APTT (24.9-33.3) secs Sodium 140 (135-145) mmol/L Potassium 3.5 (3.5-5.0) mmol/L Chloride 109 (101-111) mmol/L Carbon Dioxide 22 (21-32) mmol/L Anion Gap 9.0 (6-13) BUN 63 H (6-20) mg/dL Creatinine 2.1 H (0.4-1.0) mg/dL Estimated GFR (MDRD) 23 L (>89) Glucose 117 H (70-100) mg/dL POC Whole Bld Glucose (70 - 100) mg/dL Glycated Hemoglobin (4.6-6.2) % Estim Average Glucose (70-100) Calcium 8.3 L (8.5-10.3) mg/dL Total Bilirubin (0.2-1.0) mg/dL AST (10-42) IU/L ALT (10-60) IU/L Alkaline Phosphatase (42-121) IU/L Troponin I (<0.49) ng/mL Total Protein (6.7-8.2) g/dL Albumin (3.2-5.5) g/dL Globulin (2.1-4.2) g/dL Albumin/Globulin Ratio (1.0-2.2) Lipase (22-51) U/L Carcinoembryonic Ag ng/mL Blood Type Blood Type Recheck Antibody Screen Crossmatch IS Only 04/18/18 04/18/18 04/18/18 Range/Units 23:53 20:18 17:56 WBC (4.8-10.8) x10^3/uL RBC (4.20-5.40) 10^6/uL Hgb (12.0-16.0) g/dL Hct (37.0-47.0) % MCV (81.0-99.0) fL MCH (27.0-31.0) pg MCHC (32.0-36.0) g/dL RDW (12.0-15.0) % Plt Count (130-450) 10^3/uL MPV (7.9-10.8) fL Neut # (Auto) (1.5-6.6) 10^3/uL Lymph # (Auto) (1.5-3.5) 10^3/uL Bond # (Auto) (0.0-1.0) 10^3/uL Eos # (Auto) (0.0-0.7) 10^3/uL Baso # (Auto) (0.0-0.1) 10^3/uL Absolute Nucleated RBC x10^3/uL Nucleated RBC % /100WBC PT (9.9-12.6) secs INR (0.8-1.2) APTT (24.9-33.3) secs Sodium (135-145) mmol/L Potassium (3.5-5.0) mmol/L Chloride (101-111) mmol/L Carbon Dioxide (21-32) mmol/L Anion Gap (6-13) BUN (6-20) mg/dL Creatinine (0.4-1.0) mg/dL Estimated GFR (MDRD) (>89) Glucose (70-100) mg/dL POC Whole Bld Glucose 123 H 149 H 150 H (70 - 100) mg/dL Glycated Hemoglobin (4.6-6.2) % Estim Average Glucose (70-100) Calcium (8.5-10.3) mg/dL Total Bilirubin (0.2-1.0) mg/dL AST (10-42) IU/L ALT (10-60) IU/L Alkaline Phosphatase (42-121) IU/L Troponin I (<0.49) ng/mL Total Protein (6.7-8.2) g/dL Albumin (3.2-5.5) g/dL Globulin (2.1-4.2) g/dL Albumin/Globulin Ratio (1.0-2.2) Lipase (22-51) U/L Carcinoembryonic Ag ng/mL Blood Type Blood Type Recheck Antibody Screen Crossmatch IS Only 04/18/18 04/18/18 04/18/18 Range/Units 17:05 13:45 12:40 WBC 6.4 (4.8-10.8) x10^3/uL RBC 3.11 L (4.20-5.40) 10^6/uL Hgb 8.1 L (12.0-16.0) g/dL Hct 27.7 L (37.0-47.0) % MCV 88.8 (81.0-99.0) fL MCH 25.9 L (27.0-31.0) pg MCHC 29.2 L (32.0-36.0) g/dL RDW 18.6 H (12.0-15.0) % Plt Count 77 L (130-450) 10^3/uL MPV 10.5 (7.9-10.8) fL Neut # (Auto) (1.5-6.6) 10^3/uL Lymph # (Auto) (1.5-3.5) 10^3/uL Bond # (Auto) (0.0-1.0) 10^3/uL Eos # (Auto) (0.0-0.7) 10^3/uL Baso # (Auto) (0.0-0.1) 10^3/uL Absolute Nucleated RBC x10^3/uL Nucleated RBC % /100WBC PT 14.7 H (9.9-12.6) secs INR 1.3 H (0.8-1.2) APTT 32.4 (24.9-33.3) secs Sodium (135-145) mmol/L Potassium (3.5-5.0) mmol/L Chloride (101-111) mmol/L Carbon Dioxide (21-32) mmol/L Anion Gap (6-13) BUN (6-20) mg/dL Creatinine (0.4-1.0) mg/dL Estimated GFR (MDRD) (>89) Glucose (70-100) mg/dL POC Whole Bld Glucose (70 - 100) mg/dL Glycated Hemoglobin (4.6-6.2) % Estim Average Glucose (70-100) Calcium (8.5-10.3) mg/dL Total Bilirubin (0.2-1.0) mg/dL AST (10-42) IU/L ALT (10-60) IU/L Alkaline Phosphatase (42-121) IU/L Troponin I (<0.49) ng/mL Total Protein (6.7-8.2) g/dL Albumin (3.2-5.5) g/dL Globulin (2.1-4.2) g/dL Albumin/Globulin Ratio (1.0-2.2) Lipase (22-51) U/L Carcinoembryonic Ag ng/mL Blood Type A POSITIVE Blood Type Recheck Antibody Screen NEGATIVE Crossmatch IS Only See Detail 04/18/18 04/18/18 04/18/18 Range/Units 12:40 12:40 12:40 WBC (4.8-10.8) x10^3/uL RBC (4.20-5.40) 10^6/uL Hgb (12.0-16.0) g/dL Hct (37.0-47.0) % MCV (81.0-99.0) fL MCH (27.0-31.0) pg MCHC (32.0-36.0) g/dL RDW (12.0-15.0) % Plt Count (130-450) 10^3/uL MPV (7.9-10.8) fL Neut # (Auto) (1.5-6.6) 10^3/uL Lymph # (Auto) (1.5-3.5) 10^3/uL Bond # (Auto) (0.0-1.0) 10^3/uL Eos # (Auto) (0.0-0.7) 10^3/uL Baso # (Auto) (0.0-0.1) 10^3/uL Absolute Nucleated RBC x10^3/uL Nucleated RBC % /100WBC PT (9.9-12.6) secs INR (0.8-1.2) APTT (24.9-33.3) secs Sodium 138 (135-145) mmol/L Potassium 3.7 (3.5-5.0) mmol/L Chloride 107 (101-111) mmol/L Carbon Dioxide 23 (21-32) mmol/L Anion Gap 8.0 (6-13) BUN 62 H (6-20) mg/dL Creatinine 2.2 H (0.4-1.0) mg/dL Estimated GFR (MDRD) 21 L (>89) Glucose 146 H (70-100) mg/dL POC Whole Bld Glucose (70 - 100) mg/dL Glycated Hemoglobin (4.6-6.2) % Estim Average Glucose (70-100) Calcium 8.7 (8.5-10.3) mg/dL Total Bilirubin 1.0 (0.2-1.0) mg/dL AST 34 (10-42) IU/L ALT 22 (10-60) IU/L Alkaline Phosphatase 52 (42-121) IU/L Troponin I < 0.04 (<0.49) ng/mL Total Protein 7.0 (6.7-8.2) g/dL Albumin 2.9 L (3.2-5.5) g/dL Globulin 4.1 (2.1-4.2) g/dL Albumin/Globulin Ratio 0.7 L (1.0-2.2) Lipase 38 (22-51) U/L Carcinoembryonic Ag ng/mL Blood Type Blood Type Recheck A POSITIVE Antibody Screen Crossmatch IS Only 04/18/18 Range/Units 12:40 WBC 5.8 (4.8-10.8) x10^3/uL RBC 3.14 L (4.20-5.40) 10^6/uL Hgb 8.2 L (12.0-16.0) g/dL Hct 25.4 L (37.0-47.0) % MCV 81.2 (81.0-99.0) fL MCH 26.0 L (27.0-31.0) pg MCHC 32.1 (32.0-36.0) g/dL RDW 17.9 H (12.0-15.0) % Plt Count 76 L (130-450) 10^3/uL MPV 9.9 (7.9-10.8) fL Neut # (Auto) 4.1 (1.5-6.6) 10^3/uL Lymph # (Auto) 0.9 L (1.5-3.5) 10^3/uL Bond # (Auto) 0.5 (0.0-1.0) 10^3/uL Eos # (Auto) 0.2 (0.0-0.7) 10^3/uL Baso # (Auto) 0.1 (0.0-0.1) 10^3/uL Absolute Nucleated RBC 0.00 x10^3/uL Nucleated RBC % 0.0 /100WBC PT (9.9-12.6) secs INR (0.8-1.2) APTT (24.9-33.3) secs Sodium (135-145) mmol/L Potassium (3.5-5.0) mmol/L Chloride (101-111) mmol/L Carbon Dioxide (21-32) mmol/L Anion Gap (6-13) BUN (6-20) mg/dL Creatinine (0.4-1.0) mg/dL Estimated GFR (MDRD) (>89) Glucose (70-100) mg/dL POC Whole Bld Glucose (70 - 100) mg/dL Glycated Hemoglobin (4.6-6.2) % Estim Average Glucose (70-100) Calcium (8.5-10.3) mg/dL Total Bilirubin (0.2-1.0) mg/dL AST (10-42) IU/L ALT (10-60) IU/L Alkaline Phosphatase (42-121) IU/L Troponin I (<0.49) ng/mL Total Protein (6.7-8.2) g/dL Albumin (3.2-5.5) g/dL Globulin (2.1-4.2) g/dL Albumin/Globulin Ratio (1.0-2.2) Lipase (22-51) U/L Carcinoembryonic Ag ng/mL Blood Type Blood Type Recheck Antibody Screen Crossmatch IS Only ABX Reporting Has patient been on IV antibiotics over the past 48 hours?: No Assessment/Plan - Problem List (1) Cirrhosis of liver with ascites Impression: (1) Cirrhosis of liver with ascites Conclusion/Plan: She is a CTS socre of 8 which puts her at Class B and 80% 1 year survival. She denies alcohol abuse. There is no jaundice, PT is mildly elevated, and LFT's are nml. No encephalopathy but her dementia doesn't help. she has no history of drug abuse. 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 Differential diagnosis in this woman would include hepatitis B/C, mets from ovarian/colon cancer, autoimmune hepatitis, but doubt hemochromatosis or Gian's at this point in her life. There is no definitive liver lesion seen on CT. We are focusing on the hematochezia but she is more concerned about the fact she cannot breathe from her abdominal distention. So far this morning we are awaiting the paracentesis. I have spoken to both radiologist and central supply technician supervisor. If there likely they can get her in around 10:30 in the morning. Otherwise it will be at lunchtime. All appropriate studies of already been ordered and put in [facility]. Plan: We have called [facility] to get those results and not sent yet, we will recall. Hernán the [facility] is verifying Check alpha-fetoprotein, draw is this am. Her CEA is <4. Will also get IgG, FABRICIO, anticmooth muscle Ab, anti-LKM-1, and LC1 Probable outpatient EGD to check for esophageal varices, Gen Surg Consult kateryna pastrana. I have spoken to Radiology, Dr. Bowie and US tech, paracentesis is for 10:30 or noon. Will hang albumin and IVF and have it ready to go for when she goes down to radiology Fluid will be sent for cell count, Gram stain, culture and sensitivity, LDH, glucose, protein. I will also have fluid spun down for cytology and analysis. Hepatitis B and C serology is pending from April 06 at [place]. I do not want to repeat the studies. Qualifiers: Hepatic cirrhosis type: unspecified hepatic cirrhosis Qualified Code(s): K74.60 - Unspecified cirrhosis of liver; R18.8 - Other ascites (2) Hematochezia Conclusion/Plan: This is a lady who has bright red blood per rectum from a presumed hemorrhoid. Hematochezia started after she was started on iron tablets. Hemoglobin from April 06 and today is stable. The patient's black stools may be strictly from iron tablets. As for the small "little ball" that she feels in her rectum, she may be feeling her rectal prolapse. It is painless. And Dr. Diggs does not feel hemorrhoids. Or see hemorrhoids. Stool is FOBT (+) Plan: Checking every 6 hours hemograms and her Hgb has drifted down to 7.1 on two checks. Stable. Transfuse 1 unit if < 7 especially if BP goes down w paracentesis. She may be a candidate for an EGD and colonoscopy. However, if she has esophageal varices, general surgery is not gone want to scope her here. If she is hemodynamically stable and not having evidence of a GI bleed, she may need to do this in the outpatient setting when she sees the physician retail event and sales assistant April 30. (3) Acute renal failure superimposed on stage 3 chronic kidney disease Conclusion/Plan: She may have prerenal azotemia from the lack of p.o. intake. But she already has chronic kidney disease and liver failure. Monitor for hepatorenal failure. Plan: Check daily BMP. Creat is stable. 2.2>2.1 Make sure she does not get hypotensive She will need diuresis. However, I plan on paracentesis today and she may get up to 6-7 L taken out. We will make sure she gets albumin during the procedure per Dr. Bowie's request. At 6-8 grams/L taken out, she will need minimum of 42 grams so will give 4 bottles. I did not give her Lasix on top of that yesterday until she is redistributed some of her body fluids. I also warned her that sometimes she gets severe leg cramps and body cramps as the fluid comes out of your soft tissues. We will make sure she gets magnesium oxide. Qualifiers: Acute renal failure type: unspecified Qualified Code(s): N17.9 - Acute kidney failure, unspecified; N18.3 - Chronic kidney disease, stage 3 (moderate) (4) Controlled type 2 diabetes mellitus, with long-term current use of insulin Conclusion/Plan: Lantus is 50 units at night. She also takes 25 units of lispro 25 subcu 3 times daily. She will be allowed dinner. But then she will be n.p.o. after midnight. Her random glucose was 146 on admission. She is 103-125 this am. Will hang D5. She is NPO for procedure. will feed her as soon as paracentesis done. Qualifiers: Diabetes mellitus complication status: with kidney complications Diabetes mellitus complication detail: with chronic kidney disease Chronic kidney disease stage: stage 3 (moderate) Qualified Code(s): E11.22 - Type 2 diabetes mellitus with diabetic chronic kidney disease; N18.3 - Chronic kidney disease, stage 3 (moderate); Z79.4 - FPC (current) use of insulin (5) HTN (hypertension) Conclusion/Plan: Aim for systolic of less than 130 and a diastolic of less than 70. We will also monitor carefully because she is going to get a paracentesis and will be intravascularly depleted and possibly drop her blood pressure. Again, we will avoid diuretics for now. She will get albumin after the procedure. Qualifiers: Hypertension type: essential hypertension Qualified Code(s): I10 - Essential (primary) hypertension (6) Renal mass, right Conclusion/Plan: renal US. (7) KENNY (dyspnea on exertion) Conclusion/Plan: This woman describes classic presentation of someone who may have congestive heart failure. But she is adamant that an echocardiogram done in [place] the month before she left [place] was completely normal. I do not know if I want to trust that history or do a repeat our own echo here? She does not have COPD or asthma as was listed in her medical record and [place]. She is adamant that she was a non-smoker, never had problems with asthma or coughing or wheezing. Her dyspnea on exertion may be strictly from this gradually in creasing ascites. After her paracentesis, will reevaluate her mobility and endurance. If it is still limited, will check echo then. (8) Isolated lymph node. Conclusion/Plan: She can't tolerae dye w a CT. Will do CT neck and chest once her paracentesis has been done.
[2018-04-19] MEDS ORDERED: ALBUMIN 25% 12.5 GM/50 ML VIAL IV SCH (09:00)
[2018-04-19] MEDS ORDERED: DEXTROSE 5%-0.9% NACL 1,000 ML IV SCH (09:00)
[2018-04-19] MEDS ORDERED: LIDOCAINE 1% 10 ML MDV ONE (11:17)
[2018-04-19] MEDS: ALBUMIN 25% 12.5 GM/50 ML VIAL IV SCH ×4 (12:21→12:48)
[2018-04-19 13:40] LABS: CC,BF RBC 485 /mm^3
--- NOTE | 2018-04-19 13:48 | Ultrasound Report ---
Reason: ascites, no hx of hep or alco Procedure Date: 04/19/2018 Accession Number: [id number] / [id number] Procedure: US - Abdominal Paracentesis CPT Code: FULL RESULT: EXAM: ULTRASOUND-GUIDED PARACENTESIS EXAM DATE: 04/19/2018 01:32 PM. CLINICAL HISTORY: Ascites, no history of hep or alco. COMPARISON: None. TECHNIQUE: Risks, benefits, and alternatives to the procedure were discussed with the patient. All questions answered. Written and verbal consent obtained. Patient was placed in the supine position and the skin overlying the ascites marked with sonographic guidance. The skin was sterilely prepped and draped, and 1% buffered lidocaine was used for local anesthesia. An 18-gauge J[place] catheter was advanced into the peritoneal ascites and fluid aspirated. Upon completion, the catheter was removed. FINDINGS: A total of 5400 mL of fluid was removed without immediate complication. Patient tolerated procedure well. IMPRESSION: Ultrasound-guided paracentesis without immediate complications. RADIA
[2018-04-19] MEDS: FERROUS SULFATE 325 MG TABLET PO SCH ×2 (13:59→20:22)
[2018-04-19] MEDS: amLODIPine 5 MG TABLET PO SCH (13:59)
[2018-04-19] MEDS: SERTRALINE 25 MG TABLET PO SCH (13:59)
[2018-04-19] MEDS: POLYETHYLENE GLYCOL 3350 17 GM PACKET PO SCH (14:01)
[2018-04-19 14:22] LABS: BF COLOR YELLOW; BF SOURCE PERITONEAL; LYMPHOCYTES %,BODY FLUID 56; MACROPHAGES %,BODY FLUID 31 %; MONOCYTES %,BODY FLUID 4 %
[2018-04-19] MEDS ORDERED: BUFFERED LIDOCAINE 10 ML SYRINGE IU ONE (17:07)
[2018-04-19] MEDS: INSULIN ASPART 300 UNIT/3 ML PEN SUBQ SCH ×2 (17:15→20:23)
[2018-04-19] MEDS: INSULIN GLARGINE 300 UNIT/3 ML PEN SUBQ SCH (20:23)
[2018-04-20] MEDS: SODIUM CHLORIDE FLUSH 0.9% 10 ML SYRINGE IVP SCH ×2 (01:13→08:52)
[2018-04-20] MEDS: oxyCODONE 5 MG TABLET PO PRN (04:11)
[2018-04-20 06:12] LABS: BASOPHILS % (AUTO) 0.9 %; EOSINOPHILS # (AUTO) 0.2 10^3/uL (0.0-0.7); EOSINOPHILS % (AUTO) 4.6 %; HGB - HEMOGLOBIN 7.1 g/dL (12.0-16.0); LYMPHOCYTES # (AUTO) 0.8 10^3/uL (1.5-3.5); LYMPHOCYTES % (AUTO) 18.8 %; MEAN CORPUSCULAR HEMOGLOBIN 25.6 pg (27.0-31.0); MEAN CORPUSCULAR VOLUME 82.5 fL (81.0-99.0); MEAN PLATELET VOLUME 9.7 fL (7.9-10.8); MONOCYTES # (AUTO) 0.5 10^3/uL (0.0-1.0); MONOCYTES % (AUTO) 11.3 %; NEUTROPHILS # (AUTO) 2.7 10^3/uL (1.5-6.6); NEUTROPHILS % (AUTO) 64.4 %; PLT - PLATELET COUNT 69 10^3/uL (130-450); RED BLOOD COUNT 2.77 10^6/uL (4.20-5.40); RED CELL DISTRIBUTION WIDTH 18.1 % (12.0-15.0); WHITE BLOOD COUNT 4.2 x10^3/uL (4.8-10.8)
[2018-04-20 06:23] LABS: CALCIUM 8.2 mg/dL (8.5-10.3); CREATININE 1.8 mg/dL (0.4-1.0)
[2018-04-20] MEDS: INSULIN ASPART 300 UNIT/3 ML PEN SUBQ SCH ×2 (08:28→12:45)
[2018-04-20] MEDS: SERTRALINE 25 MG TABLET PO SCH (08:50)
[2018-04-20] MEDS: amLODIPine 5 MG TABLET PO SCH (08:50)
[2018-04-20] MEDS: FERROUS SULFATE 325 MG TABLET PO SCH (08:51)
[2018-04-20] MEDS: POLYETHYLENE GLYCOL 3350 17 GM PACKET PO SCH (08:51)
--- NOTE | 2018-04-20 08:56 | CT Report ---
Reason: lymhadenopathy Procedure Date: 04/20/2018 Accession Number: [id number] / [id number] Procedure: CT - Chest W/O CPT Code: FULL RESULT: EXAM: CT CHEST EXAM DATE: 04/20/2018 07:28 AM. CLINICAL HISTORY: Lymphadenopathy. Renal insufficiency (GFR 27). COMPARISONS: Chest x-ray 04/18/2018. TECHNIQUE: Routine helical CT imaging was performed through the chest. IV contrast: None. Reconstructions: Coronal and sagittal. In accordance with CT protocol optimization, one or more of the following dose reduction techniques were utilized for this exam: automated exposure control, adjustment of mA and/or KV based on patient size, or use of iterative reconstructive technique. FINDINGS: Lungs/Pleura: Patchy irregular airspace opacities medial right lower lobe and left base. Trace left pleural effusion. Mild subpleural atelectasis or scarring left upper lobe. No central endobronchial obstructing lesion. Mild pulmonary vascular engorgement, without overt pulmonary edema. Elevated anterior right hemidiaphragm suggests diaphragmatic eventration. No pneumothorax. Mediastinum: Mild cardiomegaly without pericardial effusion. Moderate coronary calcifications. Modest calcified aortic plaques. No aneurysm. No gross mediastinal or hilar adenopathy identified. Bones: Degenerative changes of the spine and shoulders. No acute fracture or aggressive bone destructive process. Visualized Abdomen: Small cirrhotic liver. Moderate ascites and mesenteric/omental infiltration. Small hiatus hernia. Mild low density left adrenal thickening, without suspicious nodule. A 1.9 cm exophytic right upper pole renal nodule. Other: A 1.5 cm nodule in the medial and a 0.9 cm nodule in the upper left breast. Few small normal appearing bilateral axillary nodes. IMPRESSION: 1. Patchy irregular bibasilar opacities consistent with atelectasis or infiltrates. No segmental consolidation. 2. Trace left pleural effusion. 3. No obvious mediastinal or hilar adenopathy. 4. Mild cardiomegaly. Pulmonary vascular engorgement, without overt pulmonary edema. Moderate coronary calcifications. 5. Small hiatus hernia. 6. Cirrhosis. Moderate ascites and other incidental findings in the visualized upper abdomen. RADIA
[2018-04-20] MEDS ORDERED: POTASSIUM CHLORIDE 20 MEQ/15 ML UDC PO SCH (09:00)
[2018-04-20 09:04] VITALS: BP 135/46
--- NOTE | 2018-04-20 11:47 | CT Report ---
Reason: lymphadenopathy Procedure Date: 04/20/2018 Accession Number: [id number] / [id number] Procedure: CT - Neck Soft Tissue W/O CPT Code: FULL RESULT: EXAM: CT SOFT TISSUE NECK WITHOUT CONTRAST. EXAM DATE: 04/20/2018 07:28 AM. HISTORY: 83-year-old female with lymphadenopathy COMPARISONS: None. TECHNIQUE: Routine soft tissue neck CT protocol without intravenous contrast. Reconstructions: Coronal and sagittal. IV contrast: None. In accordance with CT protocol optimization, one or more of the following dose reduction techniques were utilized for this exam: automated exposure control, adjustment of mA and/or KV based on patient size, or use of iterative reconstructive technique. FINDINGS: Visualized Intracranial Contents: No acute abnormality. Cavum septum pellucidum et vergae, a benign anatomic variant. Orbits: Status post right lens replacement surgery. The visualized orbits are otherwise unremarkable. Sinuses: Visualized paranasal sinuses and mastoid air cells are clear. Oral cavity: The visualized oral cavity is unremarkable. The floor of the mouth is symmetric. Pharynx : Pharyngeal mucosa is unremarkable. The infratemporal fossa, parapharyngeal spaces, and retropharyngeal space are unremarkable. The base of the tongue is symmetric and unremarkable. The airway is patent. Larynx: Larynx and supraglottic airway are patent without mass lesion. Vocal cords are symmetric. The visualized trachea is unremarkable. Parotid and Submandibular Glands: There is a 17 x 13 mm soft tissue density lesion within the left parotid gland (series 2 image 24). The right parotid gland and the submental glands are unremarkable. Lymph Nodes: No enlarged lymph nodes are identified in the cervical, supraclavicular, and visualized superior mediastinal regions. Soft tissues: Soft tissues are unremarkable. No mass lesion. Vascular Structures: Mild atherosclerosis Thyroid Gland: Normal. Lung: The visualized lung apices are clear. Bones: No evidence of acute fracture or malalignment. There are mild degenerative changes. Other: None. IMPRESSION: 1. There is a 17 x 13 mm soft tissue density lesion within the left parotid gland (series 2 image 24). This lesion is nonspecific, may represent intraparotid lymph node versus a parotid lesion such as pleomorphic adenoma. Consider follow-up ultrasound evaluation. 2. Otherwise no CT evidence of cervical lymphadenopathy, mass, abscess, or definite mucosal abnormality. [facility]
--- NOTE | 2018-04-20 12:06 | Discharge Plan ---
Discharge Plan Disposition: Home, Self Care Condition: Fair Prescriptions: Insulin Glargine [Lantus Solostar] 20 unit SUBQ QPM #1 pen Potassium Chloride [K-Dur] 20 meq PO DAILY #30 tablet Spironolactone [Aldactone] 25 mg PO DAILY #60 tablet Diet: Low Sodium (Restrict sodium to 2 grams a day and fluid to 2 liters a day) Activity Restrictions: Activity as Tolerated Shower Restrictions: No Driving Restrictions: No Assistance Devices: Walker Weight Bearing: Full Weight Additional Instructions or Follow Up instructions: You came to our emergency department due to fatigue and increasing pressure in your abdomen. You were found to have fluid in your abdomen and in your lower extremities. After further testing it appears that you have cirrhosis of your liver causing ascites. We removed fluid from your abdomen with a paracentesis. We also gave you diuretic medication to reduce the fluid in your abdomen as wel l as in your legs. It appears that your breathing has improved although you still have difficulty taking deep breaths. We have not yet been able to detect the cause of your cirrhosis. You need further workup including an oncology follow-up as you do have a soft tissue density in your parotid gland that needs an ultrasound evaluation and may need biopsy. You also need to follow-up with gastroenterology as you have been having black stools and your hemoglobin or blood count is low. We are prescribing you a diuretic called spironolactone along with Bumex which you are already taking to help reduce the amount of fluid in your legs and your abdomen. I also advised that you decrease your salt intake to no more than 2 g a day. Along with this you should also limit your fluid intake to no more than 2 L a day. You need to follow-up closely with your primary care physician. We found while you were hospitalized that your blood glucose is running low and you will need to reduce your dose of Lantus to 20 units and NovoLog to 5 units 3 times a day with meals. I encouraged that you keep a log of your blood glucose after reduction in the dose and reported to your primary care physician. No Smoking: If you smoke, Please STOP! Call for help. Follow-up with: Rachele Carl MD [Primary Care Provider] -
--- NOTE | 2018-04-20 12:55 | CONSULTATION NOTE ---
Referring Provider Name of Referring Provider:: Dr. Herrera Consult Date: 04/19/18 Chief Complaint - Chief Complaint Chief Complaint: Hematochezia- anemia History of Present Illness - Admitted From Admitted From:: [facility] ED - History Obtained From Records Reviewed: Yes History obtained from: Primarily chart and Dr. Herrera, some patient and daughter Exam Limitations: Sami speaking - History of Present Illness HPI Comment/Other: I am asked to opine on this pleasant (Sami-speaking) 83-year-old female who was evaluated in room 2210 at [facility] MedSurg unit. I am going to summarize her presentation. She has new onset ascites along with renal failure and understandably dyspnea on exertion. This is complicated by some dementia. The reason for the consult to me is that there was some hematochezia and the patient was started on iron which then made her stools dark/black. On radiographic studies she has cirrhosis but the cause of the cirrhosis is unknown. Dr. Herrera has outlined a very detailed plan to workup either the cirrhosis and/or the renal failure and the patient is scheduled to be seen by supervisor maintenance and custodians within a week's time as well as by a sink cutter. Currently, the patient complains of some lightheadedness but can stand and use a walker to transition into a wheelchair. There is no hematemesis. Specifically there is no abdominal pain. It is unclear if there has ever been a colonoscopy or endoscopy done previously. 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 She had severe Alzheimer's at her . Dad in his mid 80s of "old age". She is 1 of 8 siblings. 4 siblings are . They are of complications of diabetes, dialysis, bone cancer. 3 children. 2 sons and a daughter. Morbid obesity, diabetes but otherwise healthy Living arrangement: At home Living Situation: With family Social History Notes: She is from [place]. Moved to [facility] in February 2018. She moved here because she could not live alone by herself anymore in [place]. She been falling too much. Memory loss was getting severe. Daughter was getting more a more alarmed. She did spend some time with her son in [place] but it did not work out and she was moved to [place] after that. She has been 2 times. Currently from her second . 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 She did that for about 10 or 15 years. She does not think that she was exposed to any risky chemicals. But the family is not sure. She stopped work with the of her first child. That was about 42 years ago. Never had a history of alcohol abuse.She never smoked. She never did recreational substance. - Substance History Use: Uses substance without health or social issues: NONE Abuse: Recurrent use of substance despite neg consequences: NONE Dependence: Experiences withdrawal or developed tolerances: NONE - POLST Patient has POLST: No POLST Status: Full Code Meds/Allgy - Home Medications Home Medications: Ambulatory Orders Medication Instructions Recorded Confirmed Amlodipine Besylate 5 mg PO DAILY 04/18/18 04/18/18 Atorvastatin Calcium 20 mg PO QPM 04/18/18 04/18/18 Bumetanide 1 mg PO BID 04/18/18 04/18/18 Cholecalciferol (Vitamin D3) 400 unit PO DAILY 04/18/18 04/18/18 [Vitamin D3] Ferrous Sulfate 325 mg PO BID 04/18/18 04/18/18 Sertraline [Zoloft] 25 mg PO DAILY 04/18/18 04/18/18 raNITIdine [Zantac] 150 mg PO DAILY 04/18/18 04/18/18 Insulin Glargine [Lantus Solostar] 20 unit SUBQ QPM #1 pen 04/20/18 Insulin Lispro [Humalog] 5 unit SQ TIDWM #1 04/20/18 04/18/18 Potassium Chloride [K-Dur] 20 meq PO DAILY #30 tablet 04/20/18 Spironolactone [Aldactone] 25 mg PO DAILY #60 tablet 04/20/18 - Allergies Allergies/Adverse Reactions: Allergies Allergy/AdvReac Type Severity Reaction Status Date / Time Penicillins Allergy Unknown Verified 04/18/18 12:23 Review of Systems - Constitutional Constitutional: reports: Fatigue - Eyes Eyes: denies: Pain - Ears, Nose & Throat Ears, Nose & Throat: denies: Ear pain - Cardiovascular Cariovascular: reports: Palpitations - Respiratory Respiratory: reports: SOB at rest, SOB with exertion. denies: Hemoptysis - Gastrointestinal Gastrointestinal: reports: Rectal bleeding, Bloody stools. denies: Abdominal pain, Black stools - Musculoskeletal Musculoskeletal: reports: Limited range of motion, Muscle weakness Exam - Vital Signs Reviewed Vital Signs: Yes Vital Signs: Vital Signs x48h Temp Pulse Resp BP Pulse Ox 04/20/18 09:02 36.8 C 75 18 135/46 H 92 - Physical Exam General Appearance: positive: No acute distress (But patient moves slow and with the aid of a walker and transition into a wheelchair. She is very pleasant.) Eyes Bilateral: positive: No lid inflammation, Conjunctivae nml, No scleral icterus ENT: positive: No signs of dehydration Neck: positive: Trachea midline Respiratory: positive: Chest non-tender, Breath sounds nml Cardiovascular: positive: Regular rate & rhythm Abdomen: positive: Non-tender, No organomegaly, Nml bowel sounds, Other (Please note that there is a significant amount of central obesity.) Skin: positive: Color nml Extremities: positive: Non-tender Neurologic/Psychiatric: positive: Disoriented to time Conclusion/Plan - Diagnosis Diagnosis: Anemia with a new diagnosis of cirrhosis and renal failure - Plan Plan: There is no emergent or urgent reason to scope this patient at this point in time. She has an appointment with a supervisor maintenance and custodians in about a week's time. She is currently stable. There is a multifactorial possibility as to the cause of her anemia including but not limited to cirrhosis with varices, malignancy, renal failure to name a few. Pathology should have been done on the tap of her ascites in the office chance that it is malignant. I have let the patient and the family know that if there is any acute problem that she certainly can be see n back in the hospital and scopes can be done but I think that deferring her upper and lower endoscopy to the supervisor maintenance and custodians who will likely be working up her liver failure as well would be the most prudent and direct course. 30 minutes of [id number] time was spent with the patient, almost all in explanation and discussion, coordination of their care and completion of the requisite paperwork Dragon disclaimer: This document was created in part using voice recognition technology. Because of the inherent limitations of the system ([employer]'s [employer] user manual states that the licensee understands that speech recognition is a statistical process and that recognition errors are inherent in the process), occasional same sounding word substitutions and grammatical errors do occur and persist despite proofreading. Please read this document for context. - Lab Results Lab results reviewed: Yes Fish Bones: 04/20/18 05:55 04/20/18 05:55 - Diagnostic Imaging Results Diagnostic Imaging Results: positive: Final report reviewed, Read independently
--- NOTE | 2018-04-20 15:37 | DISCHARGE SUMMARY ---
"Discharge Summary Admit Date: 04/18/18 Discharge Date: 04/20/18 Discharging Provider: Edu Flowers MD Primary Care Provider: Rachele Carl Code Status: Attempt Resuscitation Condition at Discharge: Fair Discharge Disposition: 01 Home, Self Care - DIAGNOSES Admission Diagnoses: 1. Cirrhosis of liver with ascites 2. Hematochezia 3. Acute renal failure superimposed on stage III chronic kidney disease 4. Controlled type 2 diabetes mellitus, with long-term current use of insulin 5. Hypertension 6. Renal mass, right 7. Dyspnea on exertion Discharge Diagnoses with Status of Each Condition: 1. Cirrhosis of liver with ascites: Stable 2. Hematochezia: Stable 3. Acute renal failure superimposed on stage III chronic kidney disease: Improved 4. Kidney lesion: Stable 5. Left parotid gland soft tissue density lesion: Stable 6. Controlled type 2 diabetes mellitus, with long-term current use of insulin: Stable 7. Hypertension: Stable 8. Dyspnea on exertion: Stable - HPI History of Present Illness: 83-year-old [place] female who has a past medical history significant for type 2 diabetes mellitus, hypertension, osteoarthritis, and morbid obesity. She moved to [facility] approximately in February. In [place] she was seen by her house player approximately January. She was told that she has kidney disease and protein in the urine. Started on an ARB. Since moving here she establish herself at [facility]. [facility] stopped the ARB drug that her house player prescribed. Amlodipine was started. Ever since she started the amlodipine she has had lower extremity edema. When she saw her house player April 06, she was already having pedal edema and shortness of breath with exertion. She was denying chest pain or pressure. She was losing her balance and falling 4-5 times a week. Her falls are gotten so bad that she had bilateral black eyes. She had an echocardiogram performed this last year while living in [place] and she had normal cardiac function according to the patient. When she saw her house player he diagnosed her as chronic kidney disease stage III with a BUN of 19 and a creatinine of 1.34. He wanted her to be on a low-salt diet, avoid nonsteroidals and proton pump inhibitors. He resumed her irbasartan and added chlorthalidone 25 mg a day. He wanted her to get physical therapy, encouraged her to have a target goal of A1c of <7% for her diabetes, a target goal blood pressure less than 130/80, and he ordered a large panel of labs as well as abdominal ultrasound. An abdominal ultrasound done April 06 showed increased hepatic echogenicity and scalloping of the hepatic capsule suggesting cirrhosis. Moderate ascites. Bilateral renal cysts. She does not know any of her ultrasound or lab results yet. She was supposed to see him May 11. But she has subsequent visits with Dr. Antonio Birmingham MD (Oncology) on 04/21/18 and BARRON Pino (GI) on 04/30/18, and a repeat Nephrology visit 05/11/[address] Tapia. The oncology visit is because she has a submandibular lymphadenopathy that is worrying her daughter. So her PCP sent her to the oncologist. And she was to see the survey chief because of A bleeding hemorrhoid. She was having painless bright red blood per rectum. From her lab visits on April 06, her PTH was 44 and normal. Random urine had 254 mg/dL of protein. Hemoglobin was 8.1. Hematocrit 27.5. MCV 87. Platelets 128. BUN was 63 and creatinine was 1.73. Liver enzymes were normal. What is pending is a vitamin D, serum protein electrophoresis, urine electrophoresis, hepatitis B surface antigen, FABRICIO with reflex, RPR, hepatitis C virus antibody, HIV. When she saw the house player, she did have the dyspnea on exertion, and pedal edema. What she did not have was the fluid in her abdomen. Between then and now her belly has gotten more and more distended. More painful. She cannot breathe because of the pressure pushing up underneath her diaphragm. She denies weight loss. Appetite has gone down because she feels like she cannot eat. There is not enough room in her belly to do so. She denies night sweats. Her stool has turned black. She was started on a iron tablet. Pretty much the next day her stool turned black. With the abdominal distention got so uncomfortable that it made her baseline shortness of breath worse, she decided to come to the emergency room. In the emergency room she looks completely measurable. She is normotensive afebrile and a little bit tachypneic. O2 sats are normal on room air. But her belly distention is quite uncomfortable. Diffusely distended. BUN is stable at 62 but creatinine is higher at 2.2. Her GFR has dropped down to 21. Troponins are negative. DAVID globin is stable at 8.2. But platelets are dropping to 76. INR is 1.3. She is now admitted to make sure she is not having a GI bleed, to do a diagnostic and therapeutic paracentesis, and to overall provide symptom management. She is very anxious to make sure she leaves here by April 20. The oncology visit on April 21 was very hard to come by and she and her daughter are anxious at this that she keep it. She does have an enlarged lymph gland just underneath her jaw in the left anterior cervical chain. It is larger than the right side. Firm. Not rubbery. No other lymphadenopathy. - CONSULTS | PROCEDURES Consultations: General surgery Procedures: There is no emergent or urgent reason to scope this patient at this point in time. She has an appointment with a survey chief in about a week's time. She is currently stable. There is a multifactorial possibility as to the cause of her anemia including but not limited to cirrhosis with varices, malignancy, renal failure to name a few. Pathology should have been done on the tap of her ascites in the office chance that it is malignant. I have let the patient and the family know that if there is any acute problem that she certainly can be seen back in the hospital and scopes can be done but I think that deferring her upper and lower endoscopy to the survey chief who will likely be working up her liver failure as well would be the most prudent and direct course. - HOSPITAL COURSE Hospital Course: The patient was hospitalized for dyspnea on exertion and increasing pulmonary edema, increasing ascites and lower extremity edema. The patient was found to have cirrhosis of her liver for unknown etiology. The patient underwent an ultrasound-guided paracentesis with removal of 5.4 L of fluid. The fluid was negative for infection and was clear appearing. It has been sent for cytology and that is pending. The patient had significant improvement in her symptoms with the paracentesis and was continued on her home dose of Bumex and spironolactone was added at discharge for continued diuresis with her ongoing liver cirrhosis. The patient is currently being worked up for possible etiology of liver cirrhosis. The patient has a pending hemochromatosis workup given her history of diabetes. The patient does have evidence of end-stage liver disease given the ascites and low platelet count. The patient's INR is also mildly elevated at 1.3. The patient's bilirubin is within normal limits. The patient is scheduled to see oncology regarding a left parotid gland soft tissue density measuring 17 x 13 mm. The patient also has history of dark stools and hemoglobin remained fairly stable during hospitalization at discharge her hemoglobin was 7.1. The patient was not transfused. She will follow-up with her primary care physician and gastroenterology in 2 weeks for further evaluation and possible endoscopy and colonoscopy. The patient does not have a history of alcohol abuse or hepatitis. Suspicion is that the patient may have nonalcoholic fatty liver disease which has progressed to cirrhosis but she will likely need biopsy to confirm this. The patient was in stable condition at the time of discharge but will need extensive follow-up with oncology and gastroenterology as well as her primary care physician. During hospitalization the patient was having episodes of hypoglycemia. The patient's hemoglobin A1c was found to be 5.4 which is quite low for someone at the age of 83. The patient's Lantus and NovoLog were adjusted prior to discharge. The patient's Lantus was decreased to 20 units and NovoLog was decreased to 5 units 3 times daily with meals. The patient was asked to keep a log of her blood glucose and take it to her primary care physician for further adjustment of her insulin. Through a continuous process coffee roaster I discussed the patient's poor prognosis going forward with both her and her daughter. They understood that given her liver cirrhosis she has a poor prognosis but at this point wanted to continue to be a full code. I did explain to them that in the future that palliative care may be an option for the patient if there is no further treatment options. The patient was discha rged home with Bumex and spironolactone as well as potassium to help control her fluid overload from ascites and liver failure as well as chronic kidney disease. On presentation the patient did have acute on chronic kidney failure which was improved at the time of discharge. - ALLERGIES Allergies/Adverse Reactions: Allergies Allergy/AdvReac Type Severity Reaction Status Date / Time Penicillins Allergy Unknown Verified 04/18/18 12:23 - MEDICATIONS Home Medications: Ambulatory Orders Medication Instructions Recorded Confirmed Amlodipine Besylate 5 mg PO DAILY 04/18/18 04/18/18 Atorvastatin Calcium 20 mg PO QPM 04/18/18 04/18/18 Bumetanide 1 mg PO BID 04/18/18 04/18/18 Cholecalciferol (Vitamin D3) 400 unit PO DAILY 04/18/18 04/18/18 [Vitamin D3] Ferrous Sulfate 325 mg PO BID 04/18/18 04/18/18 Sertraline [Zoloft] 25 mg PO DAILY 04/18/18 04/18/18 raNITIdine [Zantac] 150 mg PO DAILY 04/18/18 04/18/18 Insulin Glargine [Lantus Solostar] 20 unit SUBQ QPM #1 pen 04/20/18 Insulin Lispro [Humalog] 5 unit SQ TIDWM #1 04/20/18 04/18/18 Potassium Chloride [K-Dur] 20 meq PO DAILY #30 tablet 04/20/18 Spironolactone [Aldactone] 25 mg PO DAILY #60 tablet 04/20/18 - PHYSICAL EXAM AT DISCHARGE General Appearance: positive: No acute distress, Alert, Other (Obese) Eyes Bilateral: positive: Normal inspection, PERRL, EOMI, No lid inflammation, Conjunctivae nml, No scleral icterus ENT: positive: ENT inspection nml, Pharynx nml, No signs of dehydration. negative: Purulent nasal drainage, Pharyngeal erythema, Oral lesions Neck: positive: Nml inspection, Thyroid nml, No JVD, Trachea midline. negative: Thyromegaly, Lymphadenopathy (R), Lymphadenopathy (L), Stiff neck, Carotid bruit, Tracheal deviation Respiratory: positive: Chest non-tender, Rales (Bases) Cardiovascular: positive: Regular rate & rhythm, No murmur, No gallop Peripheral Pulses: positive: 2+ Abdomen: positive: Non-tender, No organomegaly, Nml bowel sounds, Other (Abdominal distention, positive fluid wave testing. ). negative: Guarding, Rebound, Hepatomegaly Back: positive: Nml inspection. negative: CVA tenderness (R), CVA tenderness (L) Skin: positive: Color nml, No rash, Warm. negative: Diaphoresis, Pallor, Skin rash Extremities: positive: Non-tender, Full ROM, Nml appearance, Pedal edema (Improved) Neurologic/Psychiatric: positive: Oriented x3, CN's nml (2-12), Motor nml, Sensation nml, Mood/affect nml - LABS Result Diagrams: 04/20/18 05:55 04/20/18 05:55 Other Lab Results: Laboratory Results WBC 4.2 x10^3/uL (4.8-10.8) L 04/20/18 05:55 RBC 2.77 10^6/uL (4.20-5.40) L 04/20/18 05:55 Hgb 7.1 g/dL (12.0-16.0) L 04/20/18 05:55 Hct 22.9 % (37.0-47.0) L 04/20/18 05:55 MCV 82.5 fL (81.0-99.0) 04/20/18 05:55 MCH 25.6 pg (27.0-31.0) L 04/20/18 05:55 MCHC 31.0 g/dL (32.0-36.0) L 04/20/18 05:55 RDW 18.1 % (12.0-15.0) H 04/20/18 05:55 Plt Count 69 10^3/uL (130-450) L 04/20/18 05:55 MPV 9.7 fL (7.9-10.8) 04/20/18 05:55 Neut # (Auto) 2.7 10^3/uL (1.5-6.6) 04/20/18 05:55 Lymph # (Auto) 0.8 10^3/uL (1.5-3.5) L 04/20/18 05:55 [place] # (Auto) 0.5 10^3/uL (0.0-1.0) 04/20/18 05:55 Eos # (Auto) 0.2 10^3/uL (0.0-0.7) 04/20/18 05:55 Baso # (Auto) 0.0 10^3/uL (0.0-0.1) 04/20/18 05:55 Absolute Nucleated RBC 0.00 x10^3/uL 04/20/18 05:55 Nucleated RBC % 0.1 /100WBC 04/20/18 05:55 PT 14.7 secs (9.9-12.6) H 04/18/18 12:40 INR 1.3 (0.8-1.2) H 04/18/18 12:40 APTT 32.4 secs (24.9-33.3) 04/18/18 12:40 Sodium 141 mmol/L (135-145) 04/20/18 05:55 Potassium 3.2 mmol/L (3.5-5.0) L 04/20/18 05:55 Chloride 111 mmol/L (101-111) 04/20/18 05:55 Carbon Dioxide 23 mmol/L (21-32) 04/20/18 05:55 Anion Gap 7.0 (6-13) 04/20/18 05:55 BUN 58 mg/dL (6-20) H 04/20/18 05:55 Creatinine 1.8 mg/dL (0.4-1.0) H 04/20/18 05:55 Estimated GFR (MDRD) 27 (>89) L 04/20/18 05:55 Glucose 76 mg/dL (70-100) 04/20/18 05:55 POC Whole Bld Glucose 180 mg/dL (70 - 100) H 04/20/18 11:52 Glycated Hemoglobin 5.4 % (4.6-6.2) 04/19/18 04:50 Estim Average Glucose 108 (70-100) H 04/19/18 04:50 Calcium 8.2 mg/dL (8.5-10.3) L 04/20/18 05:55 Total Bilirubin 1.0 mg/dL (0.2-1.0) 04/18/18 12:40 AST 34 IU/L (10-42) 04/18/18 12:40 ALT 22 IU/L (10-60) 04/18/18 12:40 Alkaline Phosphatase 52 IU/L (42-121) 04/18/18 12:40 Troponin I < 0.04 ng/mL (<0.49) 04/18/18 12:40 Total Protein 7.0 g/dL (6.7-8.2) 04/18/18 12:40 Albumin 2.9 g/dL (3.2-5.5) L 04/18/18 12:40 Globulin 4.1 g/dL (2.1-4.2) 04/18/18 12:40 Albumin/Globulin Ratio 0.7 (1.0-2.2) L 04/18/18 12:40 Lipase 38 U/L (22-51) 04/18/18 12:40 Tumor Marker AFP 1.6 ng/mL 04/19/18 04:50 Carcinoembryonic Ag 3.3 ng/mL 04/19/18 04:50 Fluid Source PERITONEAL 04/19/18 12:50 Fluid Color YELLOW 04/19/18 12:50 Fluid Clarity CLEAR 04/19/18 12:50 Fluid WBC 109 /mm^3 04/19/18 12:50 Fluid RBC 485 /mm^3 04/19/18 12:50 Fluid Neutrophils % 9 % 04/19/18 12:50 Fluid Lymphocytes % 56 04/19/18 12:50 Fluid Monocytes % 4 % 04/19/18 12:50 Fluid Macrophages % 31 % 04/19/18 12:50 Blood Type A POSITIVE 04/18/18 13:45 Blood Type Recheck A POSITIVE 04/18/18 12:40 Antibody Screen NEGATIVE 04/18/18 13:45 Crossmatch IS Only See Detail 04/18/18 13:45 - DIAGNOSTIC IMAGING Diagnostic Imaging Results: Final report reviewed Diagnostic Imaging Results Comments: EXAM: CT CHEST EXAM DATE: 04/20/2018 07:28 AM. CLINICAL HISTORY: Lymphadenopathy. Renal insufficiency (GFR 27). COMPARISONS: Chest x-ray 04/18/2018. TECHNIQUE: Routine helical CT imaging was performed through the chest. IV contrast: None. Reconstructions: Coronal and sagittal. In accordance with CT protocol optimization, one or more of the following dose reduction techniques were utilized for this exam: automated exposure control, adjustment of mA and/or KV based on patient size, or use of iterative reconstructive technique. FINDINGS: Lungs/Pleura: Patchy irregular airspace opacities medial right lower lobe and left base. Trace left pleural effusion. Mild subpleural atelectasis or scarring left upper lobe. No central endobronchial obstructing lesion. Mild pulmonary vascular engorgement, without overt pulmonary edema. Elevated anterior right hemidiaphragm suggests diaphragmatic eventration. No pneumothorax. Mediastinum: Mild cardiomegaly without pericardial effusion. Moderate coronary calcifications. Modest calcified aortic plaques. No aneurysm. No gross mediastinal or hilar adenopathy identified. Bones: Degenerative changes of the spine and shoulders. No acute fracture or aggressive bone destructive process. Visualized Abdomen: Small cirrhotic liver. Moderate ascites and mesenteric/omental infiltration. Small hiatus hernia. Mild low density left adrenal thickening, without suspicious nodule. A 1.9 cm exophytic right upper pole renal nodule. Other: A 1.5 cm nodule in the medial and a 0.9 cm nodule in the upper left breast. Few small normal appearing bilateral axillary nodes. IMPRESSION: 1. Patchy irregular bibasilar opacities consistent with atelectasis or infiltrates. No segmental consolidation. 2. Trace left pleural effusion. 3. No obvious mediastinal or hilar adenopathy. 4. Mild cardiomegaly. Pulmonary vascular engorgement, without overt pulmonary edema. Moderate coronary calcifications. 5. Small hiatus hernia. 6. Cirrhosis. Moderate ascites and other incidental findings in the visualized upper abdomen. EXAM: CT SOFT TISSUE NECK WITHOUT CONTRAST. EXAM DATE: 04/20/2018 07:28 AM. HISTORY: 83-year-old female with lymphadenopathy COMPARISONS: None. TECHNIQUE: Routine soft tissue neck CT protocol without intravenous contrast. Reconstructions: Coronal and sagittal. IV contrast: None. In accordance with CT protocol optimization, one or more of the following dose reduction techniques were utilized for this exam: automated exposure control, adjustment of mA and/or KV based on patient size, or use of iterative reconstructive technique. FINDINGS: Visualized Intracranial Contents: No acute abnormality. Cavum septum pellucidum et vergae, a benign anatomic variant. Orbits: Status post right lens replacement surgery. The visualized orbits are otherwise unremarkable. Sinuses: Visualized paranasal sinuses and mastoid air cells are clear. Oral cavity: The visualized oral cavity is unremarkable. The floor of the mouth is symmetric. Pharynx : Pharyngeal mucosa is unremarkable. The infratemporal fossa, parapharyngeal spaces, and retropharyngeal space are unremarkable. The base of the tongue is symmetric and unremarkable. The airway is patent. Larynx: Larynx and supraglottic airway are patent without mass lesion. Vocal cords are symmetric. The visualized trachea is unremarkable. Parotid and Submandibular Glands: There is a 17 x 13 mm soft tissue density lesion within the left parotid gland (series 2 image 24). The right parotid gland and the submental glands are unremarkable. Lymph Nodes: No enlarged lymph nodes are identified in the cervical, supraclavicular, and visualized superior mediastinal regions. Soft tissues: Soft tissues are unremarkable. No mass lesion. Vascular Structures: Mild atherosclerosis Thyroid Gland: Normal. Lung: The visualized lung apices are clear. Bones: No evidence of acute fracture or malalignment. There are mild degenerative changes. Other: None. IMPRESSION: 1. There is a 17 x 13 mm soft tissue density lesion within the left parotid gland (series 2 image 24). This lesion is nonspecific, may represent intraparotid lymph node versus a parotid lesion such as pleomorphic adenoma. Consider follow-up ultrasound evaluation. 2. Otherwise no CT evidence of cervical lymphadenopathy, mass, abscess, or definite mucosal abnormality. EXAM: ULTRASOUND-GUIDED PARACENTESIS EXAM DATE: 04/19/2018 01:32 PM. CLINICAL HISTORY: Ascites, no history of hep or alco. COMPARISON: None. TECHNIQUE: Risks, benefits, and alternatives to the procedure were discussed with the patient. All questions answered. Written and verbal consent obtained. Patient was placed in the supine position and the skin overlying the ascites marked with sonographic guidance. The skin was sterilely prepped and draped, and 1% buffered lidocaine was used for local anesthesia. An 18-gauge ibabyboxeh catheter was advanced into the peritoneal ascites and fluid aspirated. Upon completion, the catheter was removed. FINDINGS: A total of 5400 mL of fluid was removed without immediate complication. Patient tolerated procedure well. IMPRESSION: Ultrasound-guided paracentesis without immediate complications. EXAM: CT ABDOMEN AND PELVIS (CT KUB) EXAM DATE: 04/18/2018 02:25 PM. CLINICAL HISTORY: Abdominal swelling, concern for cancer. Renal failure. COMPARISONS: None. TECHNIQUE: Routine axial helical CT imaging was performed through the abdomen and pelvis without IV contrast. Reconstructions: Coronal and sagittal. In accordance with CT protocol optimization, one or more of the following dose reduction techniques were utilized for this exam: automated exposure control, adjustment of mA and/or KV based on patient size, or use of iterative reconstructive technique. FINDINGS: Lung Bases: Respiratory motion limits evaluation of the parenchyma. There are linear opacities in the lung bases, suggestive of atelectasis. Heart is moderately enlarged. A small hiatal hernia is present. Liver: Nodular contour, suggestive of cirrhosis. Gallbladder/bile ducts: Gallbladder is not visualized and may be surgically absent. Common bile duct measures approximately 9 mm (series 5, image 34). This is within normal limits for the patient's age. Spleen: Mildly enlarged, measuring 14 cm in craniocaudal dimension (series 5, image 48). Pancreas: Atrophic. No ductal dilation. Adrenal glands: No nodules. Kidneys: A 1.9 cm lesion in the lower pole of the right kidney (series 3, image 56) has intermediate attenuation. This is indeterminate. Bilateral upper pole renal cyst present. No hydronephrosis. Peritoneal Cavity: There is a moderate-large volume of peritoneal free fluid. Areas of irregular stranding are demonstrated in the anterior abdomen (series 3, images 64 and 66). There are areas of stranding in the anterior abdomen (series 3, images 64 and 66), which are favored to represent areas of fluid; however, carcinomatosis could have similar appearance. No evidence of bowel obstruction. Evaluation for focal bowel inflammation is difficult in the setting of peritoneal fluid. There are scattered colonic diverticulosis without evidence of diverticulitis. Pelvic Organs: Urinary bladder is unremarkable. The uterus and adnexal structures are unremarkable. No pelvic adenopathy. Vasculature: Atherosclerotic calcification demonstrated in the abdominal aorta. No abdominal aortic aneurysm. Other: There is stranding diffusely in the subcutaneous tissues. No retroperitoneal adenopathy. IMPRESSION: 1. Cirrhosis configuration of the liver with splenomegaly, suggestive of portal hypertension. 2. Moderate-large volume peroneal free fluid is favored to represent ascites from portal hypertension. Areas of mild stranding in the anterior abdomen are felt to represent wispy areas of fluid. However, carcinomatosis is not entirely excluded. Diagnostic/therapeutic paracentesis could be considered for further evaluation. 3. Indeterminate lesion in the lower pole of the right kidney. Recommend renal ultrasound for further evaluation. 4. Small hiatal hernia. EXAM: CHEST RADIOGRAPHY EXAM DATE: 04/18/2018 01:11 PM. CLINICAL HISTORY: SOA, confusion. COMPARISON: None. TECHNIQUE: 1 view. FINDINGS: Lungs/Pleura: Low lung volumes. No focal consolidation. Possible mild pulmonary vascular congestion. No pneumothorax or large pleural effusion. Mediastinum: Mild to moderate enlargement of the cardiac silhouette. Other: None. IMPRESSION: Possible mild pulmonary vascular congestion. Otherwise no evidence of acute abnormality. - FOLLOW UP Follow Up: Patient was admitted with fluid overload from liver cirrhosis with ascites and chronic kidney disease. The patient underwent a paracentesis with removal of 5.4 L of fluid and was continued on Bumex. She had significant improvement in her shortness of breath and fluid overload. The patient was discharged home with Bumex and Aldactone for continued treatment of her fluid overload. Patient was found to be hypoglycemic and her insulin doses were adjusted. The patient also was found to have a renal and parotid gland lesion which she will have further assessed by oncology. The patient is going to follow-up with oncology tomorrow and then with gastroenterology in 2 weeks. We do not have an etiology of the patient's liver cirrhosis. The patient needs continued follow-up and has a poor prognosis going forward. - TIME SPENT Time Spent in Discharge (Minutes): 55"
[2018-04-20] MEDS ORDERED: INSULIN GLARGINE 300 UNIT/3 ML PEN SUBQ SCH (21:00)
[2018-04-21 13:50] LABS: ANA SCREEN NEGATIVE (NEGATIVE)
== END 2018-04-20 12:50 | disposition home or self-care (01) | DRG 433 ==
LOC: ED 12:05 → MS2 15:42
PROVIDERS: ADMIT Internal Medicine; ATTEND Specialist
PROC: 0W9G3ZX Drainage of Peritoneal Cavity, Percutaneous Approach, Diagnostic (ICD-10-PCS; principal; 2018-04-19)
DX: K92.2 Gastrointestinal hemorrhage, unspecified (principal); K74.60 Unspecified cirrhosis of liver; R18.8 Other ascites; N17.9 Acute kidney failure, unspecified; N18.9 Chronic kidney disease, unspecified; K92.1 Melena; E11.9 Type 2 diabetes mellitus without complications; Z79.4 Long term (current) use of insulin; I12.9 Hypertensive chronic kidney disease with stage 1 through stage 4 chronic kidney disease, or unspecified chronic kidney disease; E11.22 Type 2 diabetes mellitus with diabetic chronic kidney disease; N18.3 Chronic kidney disease, stage 3 (moderate); R53.1 Weakness; Z91.81 History of falling; R42 Dizziness and giddiness; N28.89 Other specified disorders of kidney and ureter; F03.90 Unspecified dementia, unspecified severity, without behavioral disturbance, psychotic disturbance, mood disturbance, and anxiety; R06.00 Dyspnea, unspecified; N28.9 Disorder of kidney and ureter, unspecified; D64.9 Anemia, unspecified; R59.0 Localized enlarged lymph nodes
CPT/HCPCS: 36415; 49083; 70490; 71045; 71250; 74176; 80048; 80053; 81599; 82105; 82378; 82784; 83036; 83690; 84484; 85025; 85027; 85610; 85730; 86038; 86376; 86850; 86900; 86901; 86920; 87070; 87205; 89051; 93005; 96374; 99284; 99285